=== PATIENT | female | born 1985 | race Caucasian/White ===

== ENCOUNTER → 2017-03-01 | Outpatient (CLI) | payer OTHER ==
--- NOTE | 2017-03-01 23:23 | MR ---
EXAMINATION TYPE: MR pituitary wo/w con DATE OF EXAM: 03/01/2017 COMPARISON: NONE HISTORY: Benign Neoplasm Pineal Gland TECHNIQUE: Multiplanar, multisequence images of the brain and brainstem is performed without and with IV contras t, utilizing 19 mL intravenous MultiHance . FINDINGS: Pituitary stalk is in the midline. Pituitary gland has normal size. There is uniform normal enhanceme nt of the pituitary gland. Optic chiasm appears normal. Corpus callosum appears normal. There is normal concave superior surface of the pituitary gland. There is a 5 mm rounded area of flui d signal at the pineal gland consistent with a small pineal cyst. I see no pathologic enhancement. IMPRESSION: No evidence of a pituitary mass. Small pineal cyst.
== END | disposition home or self-care (01) ==
LOC: RADMRIMAIN 17:39
PROVIDERS: ATTEND Nurse Practitioner Family
DX: D35.4 Benign neoplasm of pineal gland (principal)
CPT/HCPCS: 70553; A9577

== ENCOUNTER → 2023-02-07 | Outpatient (CLI) | payer BC ==
--- NOTE | 2023-02-07 17:37 | P.HPBAR ---
Bariatric H&P - History & Physicial H&P Date: 02/07/23 History & Physicial: Visit/CC: Patient initial contact: Initial weight: Initial weight in pounds: Height: Initial BMI: Last weight: Current weight: Current weight in pounds: Current BMI: [place] body weight (based on NIH guidelines): Excess body weight loss: The patient is a 37 year-old F who presents for Bariatric Assessment. DATE OF SERVICE: 02/07/2023 REASON FOR CONSULTATION: Initial bariatric evaluation. HISTORY OF PRESENT ILLNESS: Cheyanne Lui is a 37-year-old female who comes with lifelong morbid obesity. She comes in looking into the sleeve gastrectomy. She has family history of morbid obesity. All of her sisters has weight issues. She presents at her highest. She tried Aadipex and had injections for weight loss. She did shakeolgy for weight loss. She is smoking. She has high blood pressure. She has sleep apnea. She has family history of deep venous thrombosis. Her mother had DVTs. She denies Crohn's disease or ulcerateive colitis. She is getting a hemorrhoidectomy at the end of the month. She had a colonoscopy for blood in stools. She denies stomach or esophageal cancer in her family. He father had liver cancer. She reports knee pain and lower back pain. She has torn meniscus. She lost 35 pounds and regained on her own 4 years ago. She is looking the sleeve. She reports heartburn. She presents for the first time for evaluation of surgical weight loss. At height of 5 feet 3 inches, her ideal body weight is 140 pounds. She comes in 225 pounds. Her body mass index is 39.9. She is 85 pounds overweight. PAST MEDICAL HISTORY: 1. Morbid obesity due to excess calories 2. Body mass index of 39.9, initial 3. Osteoarthritis of the knees. 4. Osteoarthritis of the lower back. 5. Hypertensive heart disease. 6. Gastroesophageal reflux disease 7. GI bleed 8. Obstructive sleep apnea PAST SURGICAL HISTORY: 1. No abdominal surgeries HOME MEDICATIONS: Home Medications Medication Instructions Recorded Confirmed No Known Home Medications 04/23/14 05/01/14 ALLERGIES: Allergies Allergy/AdvReac Type Severity Reaction Status Date / Time No Known Allergies Allergy Verified 04/23/14 15:22 SOCIAL HISTORY: Tobacco use. FAMILY HISTORY: No family history of ulcerative colitis disease or Crohn's disease. Family history of morbid obesity. No lupus in the family. No reports of stomach or esophageal cancer. Her mother had DVTs. Dad had liver cancer. REVIEW OF ORGAN SYSTEMS: CONSTITUTIONAL: At height of 5 feet 3 inches, her ideal body weight is 140 pounds. She comes in 225 pounds. Her body mass index is 39.9. She is 85 pounds overweight. HEENT: Denies any active troubles with vision or hearing. Denies troubles with swallowing. ENDOCRINE: Denies diabetes. No hypothyroidism. CARDIOVASCULAR: Denies past reports of palpitations or heart attacks or chest pain. Has hypertensive heart disease. RESPIRATORY: Has daytime somnolence. Has asthma. Has chronic obstructive pulmonary disease. Has tobacco use. GASTROINTESTINAL: Denies any bright red blood per rectum. No diarrhea. No constipation. Has gastroesophageal reflux disease. GENITOURINARY: No recent blood in urine MUSCULOSKELETAL: Has lower back pain and joint pain. Has osteoarthritis of the knees. NEURO: No headaches. No seizure disorders. PSYCH: Denies depression. No suicidal ideation. RHEUMATOLOGIC: No lupus. No rheumatoid arthritis. HEMATOLOGIC: Denies any abnormal bleeding or bruising. Past history of DVTs in mother. SKIN: No rash. No skin cancer. PHYSICAL EXAM: VITAL SIGNS: Height 5 foot 3 inches, weight 225 pounds. BMI 39.9 Vital Signs Temp 97 F L 02/07/23 16:35 Pulse 75 02/07/23 16:35 Resp BP 129/83 02/07/23 16:35 Pulse Ox FiO2 GENERAL: Well-developed in no acute distress. HEENT: No scleral icterus. Extraocular movements grossly intact. Hears conversational speech. No nasal drainage. NECK: Supple without lymphadenopathy. CHEST: Nonlabored respirations with equal bilateral excursions. CARDIOVASCULAR: Regular rate and regular rhythm. Distal 2+ pulses. ABDOMEN: Obese, soft, nontender, nondistended. MUSCULOSKELETAL: No clubbing, cyanosis. Gross strength 5/5 distal lower extremities. NEURO: No focal or lateralizing signs. Cranial nerves 2 through 12 grossly within normal limits. PSYCH: Appropriate affect. Alert and oriented to person, place and time. SKIN: Good skin turgor. Well perfused. ASSESSMENT: 1. Morbid obesity due to excess calories 2. Body mass index of 39.9, initial 3. Osteoarthritis of the knees. 4. Osteoarthritis of the lower back. 5. Hypertensive heart disease. 6. Gastroesophageal reflux disease 7. GI bleed 8. Obstructive sleep apnea 9. Tobacco abuse PLAN: 1. Surgical options including a band, gastric bypass, sleeve gastrectomy were described in detail. Alternatives such as gastric balloon including duodenal switch were described. She is looking into the sleeve. 2. Strict tobacco cessation advised. 3. Recommend a bariatric metabolic panel to evaluate for micro- including macronutrient deficiencies. 4. For history of daytime somnolence, recommend evaluation and treatment for sleep apnea. 5. Dietary surveillance and counseling was reviewed. Increased protein intake over 65 grams daily advised. 6. Will need cardiac risk assessment. 7. Recommend medical risk assessment. 8. Psych assessment per insurance guidelines. 9. Recommend upper endoscopy. 10. Recommend 12-lead EKG. Thank you for this consultation. Past Medical History Past Medical History: No Reported History History of Any Multi-Drug Resistant Organisms: None Reported Past Surgical History: No Surgical Hx Reported Past Anesthesia/Blood Transfusion Reactions: No Reported Reaction Past Psychological History: No Psychological Hx Reported Past Alcohol Use History: None Reported Past Drug Use History: None Reported Bariatric Checklist Checklist: Plan: Checklist: EGD: 1. Hiatal hernia: 2. H. Pylori: HgbA1c: Vitamin D: Smoking: Current some day smoker Primary care physician referral: Psychiatry clearance: Cardiology clearance: Sleep study: Diet journal: VTE risk score: VTE risk level: Rehab needs at discharge:
[2023-02-08 08:15] VITALS: BP 129/83; PULSE 75; TEMP 97; BMI 39.8
== END ==
LOC: BARWHC3 16:35
PROVIDERS: ATTEND Surgery Plastic and Reconstructive Surgery
DX: E66.01 Morbid (severe) obesity due to excess calories (principal); M17.9 Osteoarthritis of knee, unspecified; I11.9 Hypertensive heart disease without heart failure; M47.816 Spondylosis without myelopathy or radiculopathy, lumbar region; K21.9 Gastro-esophageal reflux disease without esophagitis; G47.33 Obstructive sleep apnea (adult) (pediatric); F17.200 Nicotine dependence, unspecified, uncomplicated; K92.2 Gastrointestinal hemorrhage, unspecified; Z68.39 Body mass index [BMI] 39.0-39.9, adult
CPT/HCPCS: 99211

== ENCOUNTER → 2023-02-17 | Outpatient (CLI) | payer BC ==
[2023-02-17 12:10] LABS: INR 0.9 (<1.2); Partial Thromboplastin Time 25.9 sec (22.0-30.0)
[2023-02-17 23:03] LABS: HCT 43.3 % (37.2-46.3); HGB 13.1 d/dL (12.0-15.0); MCH 29.6 pg (27.0-32.0); MCHC 30.3 d/dL (32.0-37.0); Mean Platelet Volume 11.6 FL (9.5-12.2); NRBC Per 100 WBC 0 X 10*3/uL (0.00-0.01); Platelet Count 366 X 10*3/uL (140-440); RBC 4.42 X 10*6/uL (4.10-5.20); RDW 13.6 % (11.5-14.5); WBC 7.69 X 10*3/uL (4.50-10.00)
[2023-02-17 23:12] LABS: Prealbumin 23.1 mg/dL (18.0-42.0)
[2023-02-17 23:34] LABS: % Iron Saturation 21.09 (12.00-45.00); ALT 39 U/L (8-44); AST 27 U/L (13-35); Albumin 4.4 d/dL (3.8-4.9); Albumin/Globulin Ratio 1.76 Ratio (1.60-3.17); Alkaline Phosphatase 54 U/L (41-126); BUN/Creat Ratio 11.25 Ratio (12.00-20.00); Calcium 9.2 mg/dL (8.7-10.3); Carbon Dioxide 21.4 mmol/L (21.6-31.8); Chloride 106 mmol/L (96-109); Chol/HDL Ratio 4.55 Ratio; Ferritin 25.3 ng/mL (10.0-291.0); Globulin 2.5 d/dL (1.6-3.3); Glucose 94 mg/dL (70-110); Iron 93 UG/DL (50-170); LDL Cholesterol,Calculated 107.8 mg/dL (0.0-131.0); Magnesium 2.1 mg/dL (1.5-2.4); Potassium 4.4 mmol/L (3.5-5.5); Sodium 139 mmol/L (135-145); Total Bilirubin 0.3 mg/dL (0.3-1.2); Total Iron Binding Capacity 441 UG/DL (228-460); Total Protein 6.9 d/dL (6.2-8.2)
[2023-02-19 12:37] LABS: Zinc, Serum 59 ug/dL (60-130)
[2023-02-20 06:29] LABS: Vitamin A 47 ug/dL (38-106)
[2023-02-20 13:21] LABS: Vit B1(Thiamine) 79 ug/L (38-122)
[2023-02-25 08:08] LABS: Selenium 124 mcg/L (63-160)
== END | disposition home or self-care (01) ==
LOC: LABWHC1 09:41
PROVIDERS: ATTEND Surgery Plastic and Reconstructive Surgery
DX: E66.01 Morbid (severe) obesity due to excess calories (principal); Z71.51 Drug abuse counseling and surveillance of drug abuser; E89.1 Postprocedural hypoinsulinemia; D50.8 Other iron deficiency anemias; K91.2 Postsurgical malabsorption, not elsewhere classified; E44.0 Moderate protein-calorie malnutrition; E44.1 Mild protein-calorie malnutrition; E45 Retarded development following protein-calorie malnutrition; E46 Unspecified protein-calorie malnutrition; E55.9 Vitamin D deficiency, unspecified; K74.1 Hepatic sclerosis; N19 Unspecified kidney failure; T56.894A Toxic effect of other metals, undetermined, initial encounter; K50.90 Crohn's disease, unspecified, without complications
CPT/HCPCS: 36415; 80053; 80061; 82306; 82525; 82607; 82728; 82746; 83036; 83540; 83550; 83735; 83970; 84100; 84134; 84255; 84425; 84443; 84590; 84630; 85027; 85610; 85730; 93005

== ENCOUNTER 2023-04-23 07:04 | Day surgery (SDC) | payer BC ==
[2023-04-20 09:00] VITALS: BMI 41.5
--- NOTE | 2023-04-23 07:37 | P.GSHP ---
History of Present Illness H&P Date: 04/23/23 CHIEF COMPLAINT: GERD HISTORY OF PRESENT ILLNESS: The patient is a 37-year-old female who presents reports gastroesophageal reflux disease. Upper endoscopy was offered for further evaluation and management. PAST MEDICAL HISTORY: Please see list. PAST SURGICAL HISTORY: Please see list. MEDICATIONS: Please see list. ALLERGIES: Please see list. SOCIAL HISTORY: No illicit drug use FAMILY HISTORY: No reports of Crohn disease or ulcerative colitis. REVIEW OF ORGAN SYSTEMS: CONSTITUTIONAL: No reports of fevers or chills. GI: Denies any blood in stools or constipation. PHYSICAL EXAM: VITAL SIGNS: Stable GENERAL: Well-developed and pleasant in no acute distress. HEENT: No scleral icterus. Extraocular movements grossly intact. Moist buccal mucosa. NECK: Supple without lymphadenopathy. CHEST: Unlabored respirations. Equal bilateral excursions. CARDIOVASCULAR: Regular rate and rhythm. Distal 2+ pulses. ABDOMEN: Soft, nondistended. MUSCULOSKELETAL: No clubbing, cyanosis, or edema. ASSESSMENT: 1. Gastroesophageal reflux disease PLAN: 1. Recommend proceeding with an upper endoscopy Past Medical History Past Medical History: No Reported History History of Any Multi-Drug Resistant Organisms: None Reported Past Surgical History: Orthopedic Surgery, Tonsillectomy Additional Past Surgical History / Comment(s): hemorrhoidectomy february 23,arthroscopic knee right 2019 Past Anesthesia/Blood Transfusion Reactions: No Reported Reaction Additional Past Anesthesia/Blood Transfusion Reaction / Comment(s): no blood transfusion Smoking Status: Former smoker - Past Family History Father Family Medical History: Cancer Additional Family Medical History / Comment(s): liver Medications and Allergies Home Medications Medication Instructions Recorded Confirmed Type No Known Home Medications 04/23/14 04/20/23 History Allergies Allergy/AdvReac Type Severity Reaction Status Date / Time No Known Allergies Allergy Verified 04/23/14 15:22
[2023-04-23 07:38] VITALS: TEMP 97.5
[2023-04-23] MEDS ORDERED: LACTATED RINGERS 1,000 ML IV SCH (07:39)
[2023-04-23] MEDS ORDERED: PROPOFOL 10 MG/ML 20 ML VIAL IV ONE (07:54)
[2023-04-23] MEDS ORDERED: LIDOCAINE 2% INJ 20 MG/ML (2 ML VIAL) ONE (07:54)
--- NOTE | 2023-04-23 08:07 | P.PCN ---
Date of Procedure: 04/23/23 Description of Procedure: PREOPERATIVE DIAGNOSIS: Gastroesophageal reflux disease. Morbid obesity. POSTOPERATIVE DIAGNOSIS: Gastroesophageal reflux disease. Morbid obesity. Gastritis. OPERATION: Esophagogastroduodenoscopy with biopsies along antrum and duodenum SURGEON: Vickie Lin MD ANESTHESIA: MAC. INDICATIONS: The patient is a 37-year-old female who presents with reflux disease. Benefits and risks of the procedure were described. Informed consent was obtained. DESCRIPTION: The patient was brought into the endoscopy suite and laid in the left lateral decubitus position. An Olympus gastroscope was passed along the posterior oropharynx down to the distal esophagus where the squamocolumnar junction was encountered at 38 cm from the incisors. The stomach was entered and no bile reflux was found. Additional findings are listed below. Biopsies with cold forceps were obtained of the antrum. The first through third portion of the duodenum was examined. Retroflexion of the scope confirmed Hill grade 2 lower esophageal valve. The squamocolumnar junction demonstrated LA grade A erosive esophagitis. The stomach was desufflated. The patient tolerated the procedure well. FINDINGS: Squamocolumnar junction 38 cm from the incisors. Diaphragmatic hiatus at 38 cm. Hill grade 1 lower esophageal valve. LA grade A erosive esophagitis. Biopsies obtained of the duodenum. Chronic gastritis with biopsies obtained. RECOMMENDATIONS: Upper endoscopy as needed. Plan - Discharge Summary Discharge Rx Participant: No New Discharge Prescriptions: No Action No Known Home Medications Discharge Medication List No Known Home Medications 04/23/14 [History] Follow up Appointment(s)/Referral(s): [place], [place] [NON-STAFF] - 06/06/23 Discharge Disposition: HOME SELF-CARE
[2023-04-23 08:28] VITALS: BP 130/87; PULSE 77; RESP 16
== END 2023-04-23 08:47 | disposition home or self-care (01) ==
LOC: ORWHC2ENDO 07:04
PROVIDERS: ATTEND Surgery Plastic and Reconstructive Surgery
DX: K29.50 Unspecified chronic gastritis without bleeding (principal); K21.00 Gastro-esophageal reflux disease with esophagitis, without bleeding; E66.01 Morbid (severe) obesity due to excess calories; K44.9 Diaphragmatic hernia without obstruction or gangrene; Z87.891 Personal history of nicotine dependence; Z79.899 Other long term (current) drug therapy; Z68.45 Body mass index [BMI] 70 or greater, adult
CPT/HCPCS: 81025; 88305; 43239; J2704; J2001

== ENCOUNTER → 2023-06-06 | Outpatient (CLI) | payer BC ==
[2023-06-06 16:35] VITALS: BP 143/96; PULSE 99; RESP 13; TEMP 97.9; BMI 42.0
--- NOTE | 2023-06-06 16:55 | P.BASOAP ---
Subjective Progress Note Date: 06/06/23 DATE OF SERVICE: 06/06/2023 CHIEF COMPLAINT: Morbid obesity HISTORY OF PRESENT ILLNESS: Cheyanne Lui is a 38-year-old female who comes with lifelong morbid obesity. As result of morbid obesity, she has several osteoarthritis. She is recently diagnosed with diabetes type 2. She is looking into the sleeve gastrectomy. She is undergoing medical supervised weight loss. At height of 5 feet 3 inches, her ideal body weight is 140 pounds. She comes in 237 pounds. Her body mass index is 42.0. She is 97 pounds overweight. PAST MEDICAL HISTORY: 1. Morbid obesity due to excess calories 2. Body mass index of 42.0 3. Osteoarthritis of the knees. 4. Osteoarthritis of the lower back. 5. Diabetes type 2, [id number] PAST SURGICAL HISTORY: 1. Tonsillectomy 2. Arthroscopy HOME MEDICATIONS: Home Medications Medication Instructions Recorded Confirmed No Known Home Medications 04/23/14 06/06/23 ALLERGIES: Allergies Allergy/AdvReac Type Severity Reaction Status Date / Time No Known Allergies Allergy Verified 06/06/23 16:28 SOCIAL HISTORY: Past tobacco use. FAMILY HISTORY: No family history of ulcerative colitis disease or Crohn's disease. Family history of morbid obesity. No lupus in the family. No reports of stomach or esophageal cancer. REVIEW OF ORGAN SYSTEMS: CONSTITUTIONAL: At height of 5 feet 3 inches, her ideal body weight is 140 pounds. She comes in 237 pounds. Her body mass index is 42.0. She is 97 pounds overweight. HEENT: Denies any active troubles with vision or hearing. ENDOCRINE: Has diabetes. No hypothyroidism. CARDIOVASCULAR: No reports of palpitations or heart attacks or chest pain. RESPIRATORY: Has daytime somnolence. GASTROINTESTINAL: Denies any bright red blood per rectum. Has gastroesophageal reflux disease. MUSCULOSKELETAL: Has lower back pain and joint pain. Has osteoarthritis of the knees. NEURO: No headaches. No seizure disorders. PSYCH: Has depression. No suicidal ideation. RHEUMATOLOGIC: No lupus. No rheumatoid arthritis. HEMATOLOGIC: Denies any abnormal bleeding or bruising. No personal history of DVTs. SKIN: Has rash. No skin cancer. PHYSICAL EXAM: VITAL SIGNS: Height 5 foot 3 inches, weight 237 pounds. BMI 42.0 Vital Signs Temp 97.9 F 06/06/23 16:27 Pulse 99 06/06/23 16:27 Resp 13 06/06/23 16:27 BP 143/96 06/06/23 16:27 Pulse Ox FiO2 GENERAL: Well-developed in no acute distress. HEENT: No scleral icterus. Extraocular movements grossly intact. Hears conversational speech. No nasal drainage. NECK: Supple without lymphadenopathy. CHEST: Nonlabored respirations with equal bilateral excursions. CARDIOVASCULAR: Regular rate and regular rhythm. Distal 2+ pulses. ABDOMEN: Obese, soft, nontender, nondistended. MUSCULOSKELETAL: No clubbing, cyanosis. NEURO: No focal or lateralizing signs. Cranial nerves 2 through 12 grossly within normal limits. PSYCH: Appropriate affect. Alert and oriented to person, place and time. SKIN: Good skin turgor. Well perfused. LABS: Reviewed. Hemoglobin A1c elevated at 6.1%. Vitamin D low. Zinc low ASSESSMENT: 1. Morbid obesity due to excess calories 2. Body mass index of 42.0 3. Osteoarthritis of the knees. 4. Osteoarthritis of the lower back. 5. Diabetes type 2, [id number] 6. Zinc deficiency 7. Vitamin D deficiency PLAN: 1. She lost her primary care provider and needs a new provider. 2. EKG is missing from records and not scanned. Recommend additional EKG. 3. Recommend medical supervised weight loss Objective - Vital Signs Vital signs: Vital Signs Temp 97.9 F 06/06/23 16:27 Pulse 99 06/06/23 16:27 Resp 13 06/06/23 16:27 BP 143/96 06/06/23 16:27 Pulse Ox FiO2 Intake & Output 06/05/23 06/06/23 06/06/23 18:59 06:59 18:59 Weight 107.501 kg Assessment/Plan Plan: Date: 06/06/23 Initial Weight: Initial BMI: Current Weight: 107.501 kg Current BMI: 42.0 Type of Surgery: Total Volume in Band: Previous Volume: Volume Removed: Volume Added: Band Size:
== END ==
LOC: BARWHC3 16:25
PROVIDERS: ATTEND Surgery Plastic and Reconstructive Surgery
DX: E66.01 Morbid (severe) obesity due to excess calories (principal); M17.0 Bilateral primary osteoarthritis of knee; M47.816 Spondylosis without myelopathy or radiculopathy, lumbar region; E11.9 Type 2 diabetes mellitus without complications; E60 Dietary zinc deficiency; F17.200 Nicotine dependence, unspecified, uncomplicated; E55.9 Vitamin D deficiency, unspecified; Z68.41 Body mass index [BMI] 40.0-44.9, adult
CPT/HCPCS: 99211

== ENCOUNTER → 2023-06-25 | Outpatient (CLI) | payer BC ==
[2023-06-25 13:38] VITALS: BMI 41.3
== END ==
LOC: BARWHC3 12:57
PROVIDERS: ATTEND Surgery Plastic and Reconstructive Surgery
DX: E66.01 Morbid (severe) obesity due to excess calories (principal); F17.200 Nicotine dependence, unspecified, uncomplicated; Z68.41 Body mass index [BMI] 40.0-44.9, adult; Z71.3 Dietary counseling and surveillance
CPT/HCPCS: 97804; 99211

== ENCOUNTER → 2023-08-15 | Outpatient (CLI) | payer BC ==
[2023-08-15 16:55] VITALS: BP 132/77; TEMP 98; BMI 41.8
[2023-08-15 17:19] VITALS: PULSE 86
--- NOTE | 2023-09-03 07:39 | P.BASOAP ---
Subjective Progress Note Date: 08/15/23 DATE OF SERVICE:08/15/23 CHIEF COMPLAINT: Morbid obesity due to excess calories HISTORY OF PRESENT ILLNESS: Cheyanne Lui is a 38-year-old female who comes with lifelong morbid obesity. She comes in looking into the sleeve gastrectomy. She has completed medical supervised weight loss. She comes in with troubles with constipation. She has completed medical risk assessment. At height of 5 feet 3 inches, her ideal body weight is 140 pounds. She comes in 236 pounds from 237 pounds 2 months ago. She has lost 1 pounds in 2 months. Her body mass index is 41.8. She is 96 pounds overweight. PAST MEDICAL HISTORY: 1. Morbid obesity due to excess calories 2. Body mass index due to excess calories, BMI 41.8 3. Diabetes type 2, [id number] 4. Osteoarthritis lower back 5. Osteoarthritis bilateral knees 6. Osteoarthritis bilateral hips PAST SURGICAL HISTORY: 1. Status post hemorrhoidectomy HOME MEDICATIONS: Home Medications Medication Instructions Recorded Confirmed Acetaminophen [Tylenol Extra 1,000 mg PO DIRECTED PRN 08/28/23 09/05/23 Strength] Previous Rx's Medication Instructions Recorded Ibuprofen [Motrin] 600 mg PO Q8HR PRN #30 tab 09/03/23 ALLERGIES: Allergies Allergy/AdvReac Type Severity Reaction Status Date / Time No Known Allergies Allergy Verified 09/03/23 07:12 SOCIAL HISTORY: Past tobacco use. FAMILY HISTORY: No family history of ulcerative colitis disease or Crohn's disease. Family history of morbid obesity. No lupus in the family. No reports of stomach or esophageal cancer. REVIEW OF ORGAN SYSTEMS: CONSTITUTIONAL: At height of 5 feet 3 inches, her ideal body weight is 140 pounds. She comes in 236 pounds. Her body mass index is 41.8. She is 96 pounds overweight. HEENT: Denies any active troubles with vision or hearing. ENDOCRINE: Has diabetes. No hypothyroidism. CARDIOVASCULAR: Denies past reports of palpitations or heart attacks or chest pain. Denies hypertensive heart disease. RESPIRATORY: Has daytime somnolence. Has asthma. Has chronic obstructive pulmonary disease. GASTROINTESTINAL: Denies any bright red blood per rectum. No diarrhea. No constipation. Has gastroesophageal reflux disease. GENITOURINARY: Denies bladder urgency. No recent blood in urine MUSCULOSKELETAL: Has lower back pain and joint pain. Has osteoarthritis of the knees. NEURO: No headaches. No seizure disorders. Has neuropathy. PSYCH: Has depression. No suicidal ideation. RHEUMATOLOGIC: No lupus. No rheumatoid arthritis. HEMATOLOGIC: Denies any abnormal bleeding or bruising. SKIN: No rash. No skin cancer. PHYSICAL EXAM: VITAL SIGNS: Height 5 foot 3 inches, weight 236 pounds. BMI 41.8 Vital Signs Temp 98 F 08/15/23 16:40 Pulse 86 08/15/23 16:40 Resp BP 132/77 08/15/23 16:40 Pulse Ox FiO2 GENERAL: Well-developed in no acute distress. HEENT: No scleral icterus. Extraocular movements grossly intact. Hears conversational speech. No nasal drainage. NECK: Supple without lymphadenopathy. CHEST: Nonlabored respirations with equal bilateral excursions. CARDIOVASCULAR: Regular rate and regular rhythm. Distal 2+ pulses. ABDOMEN: Obese, soft, nontender, nondistended. MUSCULOSKELETAL: No clubbing, cyanosis. NEURO: No focal or lateralizing signs. Cranial nerves 2 through 12 grossly within normal limits. PSYCH: Appropriate affect. Alert and oriented to person, place and time. SKIN: Good skin turgor. Well perfused. ASSESSMENT: 1. Morbid obesity due to excess calories 2. Body mass index due to excess calories, BMI 41.8 3. Diabetes type 2, [id number] 4. Osteoarthritis lower back 5. Osteoarthritis bilateral knees 6. Osteoarthritis bilateral hips PLAN: 1. Bariatric options between a sleeve, band and a [place]-en-Y gastric bypass were reviewed in detail. The patient elected for a sleeve gastrectomy. Robotic assisted approach described. 2. The [place] [facility] Data was completed. 3. An 8 page second-generation bariatric consent form was reviewed in detail including potential of bleeding, infection, leaks, adequate weight loss, nutritional deficiencies which the patient demonstrated understanding of the risks. 4. A 2 week high-protein low caloric 800 kcal diet described to address hepatomegaly. 5. Preoperative labs including complete metabolic panel and CBC with type and screen recommended. 6. DVT prophylaxis per [place] [facility]. 7. Antibiotic prophylaxis. 8. Inpatient hospitalization anticipated for more than 2 nights. 9. All questions and concerns were addressed with the patient. 10. Overall, patient has expressed understanding of bariatric care including postoperative diet and commitment of lifestyle. Patient should benefit from surgical intervention for correction of morbid obesity. 11. Strict 2 week diet advised including hydration over 64 ounces daily and increased activity Objective - Vital Signs Vital signs: Vital Signs Temp 98 F 08/15/23 16:40 Pulse 86 08/15/23 16:40 Resp BP 132/77 08/15/23 16:40 Pulse Ox FiO2 Assessment/Plan Plan: Date: 08/15/23 Initial Weight: Initial BMI: Current Weight: 107.048 kg Current BMI: 41.8 Type of Surgery: Total Volume in Band: Previous Volume: Volume Removed: Volume Added: Band Size:
== END ==
LOC: BARWHC3 16:36
PROVIDERS: ATTEND Surgery Plastic and Reconstructive Surgery
DX: E66.01 Morbid (severe) obesity due to excess calories (principal); E11.9 Type 2 diabetes mellitus without complications; M47.816 Spondylosis without myelopathy or radiculopathy, lumbar region; M17.0 Bilateral primary osteoarthritis of knee; M16.0 Bilateral primary osteoarthritis of hip; F17.200 Nicotine dependence, unspecified, uncomplicated; Z68.41 Body mass index [BMI] 40.0-44.9, adult
CPT/HCPCS: 99211

== ENCOUNTER → 2023-08-28 | Outpatient (CLI) | payer BC ==
[2023-08-28 20:06] LABS: Basophils # (A) 0.04 X 10*3/uL (0.00-0.10); Basophils % (A) 0.4 %; Eosinophils # (A) 0.26 X 10*3/uL (0.04-0.35); Eosinophils % (A) 2.5 %; HCT 42.6 % (37.2-46.3); Lymphocytes # (A) 2.74 X 10*3/uL (0.90-5.00); Lymphocytes % (A) 26.7 %; MCH 30.8 pg (27.0-32.0); MCHC 32.9 g/dL (32.0-37.0); MCV 93.6 FL (80.0-97.0); Mean Platelet Volume 10.2 FL (9.5-12.2); Monocytes # (A) 0.64 X 10*3/uL (0.20-1.00); Monocytes % (A) 6.2 %; NRBC Per 100 WBC 0 X 10*3/uL (0.00-0.01); Neutrophils # (A) 6.58 X 10*3/uL (1.80-7.70); Platelet Count 342 X 10*3/uL (140-440); RBC 4.55 X 10*6/uL (4.10-5.20); RDW 12.3 % (11.5-14.5); WBC 10.28 X 10*3/uL (4.50-10.00)
[2023-08-28 20:31] LABS: ALT 76 U/L (8-44); AST 50 U/L (13-35); Albumin 4.7 g/dL (3.8-4.9); Albumin/Globulin Ratio 1.96 Ratio (1.60-3.17); Alkaline Phosphatase 49 U/L (41-126); BUN/Creat Ratio 17.75 Ratio (12.00-20.00); Blood Urea Nitrogen 14.2 mg/dL (9.0-27.0); Calcium 9.9 mg/dL (8.7-10.3); Carbon Dioxide 24.7 mmol/L (21.6-31.8); Chloride 102 mmol/L (96-109); Globulin 2.4 g/dL (1.6-3.3); Glucose 87 mg/dL (70-110); Potassium 3.9 mmol/L (3.5-5.5); Sodium 139 mmol/L (135-145); Total Bilirubin 0.5 mg/dL (0.3-1.2); Total Protein 7.1 g/dL (6.2-8.2)
== END | disposition home or self-care (01) ==
LOC: LABWHC1 16:00
PROVIDERS: ATTEND Surgery Plastic and Reconstructive Surgery
DX: Z01.812 Encounter for preprocedural laboratory examination (principal)
CPT/HCPCS: 36415; 80053; 85025; 86850; 86900; 86901

== ENCOUNTER 2023-09-03 06:58 | Inpatient (IN) | payer BC ==
[2023-08-28 14:25] VITALS: BMI 41.1
[~2023-09-03 06:58] MED LIST: ACETAMINOPHEN TAB 500 MG TAB PO PRN; ALVIMOPAN 12 MG CAPSULE PO PRN; DEXAMETHASONE SOD PHOSPHATE 4 MG/ML 1 ML VIAL IV ONE; ENOXAPARIN 40 MG/0.4 ML SYRINGE SQ PRN; HYDROmorphone 0.5 MG/0.5 ML SYRINGE IVP PRN; LACTATED RINGERS 1,000 ML IV SCH; LIDOCAINE 1% (10MG/ML) FOR IV START INTRADERMA PRN; ONDANSETRON 4 MG/2 ML VIAL IVP ONE; ONDANSETRON 4 MG/2 ML VIAL IVP PRN; SCOPOLAMINE 1 MG/72 HR PATCH TRANSDERM ONE; droPERidol 5 MG/2 ML VIAL IVP PRN
[2023-09-03 07:29] VITALS: RESP 16
[2023-09-03 07:30] LABS: Glucose,Whole Blood 109 mg/dL (70-110)
[2023-09-03] MEDS ORDERED: ONDANSETRON 4 MG/2 ML VIAL IVP ONE (07:38)
[2023-09-03] MEDS ORDERED: DEXAMETHASONE SOD PHOSPHATE 4 MG/ML 1 ML VIAL IVP ONE (07:38)
[2023-09-03] MEDS ORDERED: ALVIMOPAN 12 MG CAPSULE PO ONE (07:38)
[2023-09-03] MEDS ORDERED: SCOPOLAMINE 1 MG/72 HR PATCH TRANSDERM ONE (07:39)
--- NOTE | 2023-09-03 07:48 | P.GSHP ---
History of Present Illness H&P Date: 09/03/23 CHIEF COMPLAINT: Morbid obesity HISTORY OF PRESENT ILLNESS: Cheyanne Lui is a 38-year-old female who comes with lifelong morbid obesity. She comes in looking into the sleeve gastrectomy. She has family history of morbid obesity. All of her sisters has weight issues. She presents at her highest. She tried Aadipex and had injections for weight loss. She did shakeolgy for weight loss. She is smoking. She has high blood pressure. She has sleep apnea. She has family history of deep venous thrombosis. Her mother had DVTs. She denies Crohn's disease or ulcerateive colitis. She is getting a hemorrhoidectomy at the end of the month. She had a colonoscopy for blood in stools. She denies stomach or esophageal cancer in her family. He father had liver cancer. She reports knee pain and lower back pain. She has torn meniscus. She lost 35 pounds and regained on her own 4 years ago. She is looking the sleeve. She reports heartburn. At height of 5 feet 2 inches, her ideal body weight is 135 pounds. She comes in 227 pounds from 225 pounds, 6 months ago. Her body mass index is 41.6. She is 92 pounds overweight. PAST MEDICAL HISTORY: 1. Morbid obesity due to excess calories 2. Body mass index of 41.6 3. Osteoarthritis of the knees. 4. Osteoarthritis of the lower back. 5. Hypertensive heart disease. 6. Gastroesophageal reflux disease 7. GI bleed 8. Obstructive sleep apnea PAST SURGICAL HISTORY: 1. No abdominal surgeries HOME MEDICATIONS: As above ALLERGIES: As above SOCIAL HISTORY: Tobacco use. FAMILY HISTORY: No family history of ulcerative colitis disease or Crohn's disease. Family history of morbid obesity. No lupus in the family. No reports of stomach or esophageal cancer. Her mother had DVTs. Dad had liver cancer. REVIEW OF ORGAN SYSTEMS: CONSTITUTIONAL: At height of 5 feet 2 inches, her ideal body weight is 135 pounds. She comes in 227 pounds from 225 pounds, 6 months ago. Her body mass index is 41.6. She is 92 pounds overweight. HEENT: Denies any active troubles with vision or hearing. Denies troubles with swallowing. ENDOCRINE: Denies diabetes. No hypothyroidism. CARDIOVASCULAR: Denies past reports of palpitations or heart attacks or chest pain. Has hypertensive heart disease. RESPIRATORY: Has daytime somnolence. Has asthma. Has chronic obstructive pulmonary disease. Has tobacco use. GASTROINTESTINAL: Denies any bright red blood per rectum. No diarrhea. No constipation. Has gastroesophageal reflux disease. GENITOURINARY: No recent blood in urine MUSCULOSKELETAL: Has lower back pain and joint pain. Has osteoarthritis of the knees. NEURO: No headaches. No seizure disorders. PSYCH: Denies depression. No suicidal ideation. RHEUMATOLOGIC: No lupus. No rheumatoid arthritis. HEMATOLOGIC: Denies any abnormal bleeding or bruising. Past history of DVTs in mother. SKIN: No rash. No skin cancer. PHYSICAL EXAM: VITAL SIGNS: Height 5 foot 2 inches, weight 227 pounds. GENERAL: Well-developed in no acute distress. HEENT: No scleral icterus. Extraocular movements grossly intact. Hears conversational speech. No nasal drainage. NECK: Supple without lymphadenopathy. CHEST: Nonlabored respirations with equal bilateral excursions. CARDIOVASCULAR: Regular rate and regular rhythm. Distal 2+ pulses. ABDOMEN: Obese, soft, nontender, nondistended. MUSCULOSKELETAL: No clubbing, cyanosis. NEURO: No focal or lateralizing signs. Cranial nerves 2 through 12 grossly within normal limits. PSYCH: Appropriate affect. Alert and oriented to person, place and time. SKIN: Good skin turgor. Well perfused. ASSESSMENT: 1. Morbid obesity due to excess calories 2. Body mass index of 41.6 3. Osteoarthritis of the knees. 4. Osteoarthritis of the lower back. 5. Hypertensive heart disease. 6. Gastroesophageal reflux disease 7. GI bleed 8. Obstructive sleep apnea 9. Tobacco abuse 10. Leukocytosis PLAN: 1. Bariatric options between a sleeve, band and a Emani-en-Y gastric bypass were reviewed in detail. The patient elected for a sleeve gastrectomy. Robotic assisted approach described. 2. The [place] [facility] Data was also reviewed with benefits and risks as described. 3. An 8 page second-generation bariatric consent form was reviewed in detail including potential of bleeding, infection, leaks, adequate weight loss, nutritional deficiencies which the patient demonstrated understanding of the risks. 4. A 2 week high-protein low caloric 800 kcal diet described to address hepato megaly. 5. Preoperative labs including complete metabolic panel and CBC with type and screen recommended. 6. DVT prophylaxis per [place] [facility]ariat[facility] collaborative. 7. Antibiotic prophylaxis. 8. Inpatient hospitalization anticipated for more than 2 nights. 9. All questions and concerns were addressed with the patient. 10. The patient is at elevated risk for perioperative complications with sleep apnea and hypertensive heart disease. 11. Overall, patient has expressed understanding of bariatric care including postoperative diet and commitment of lifestyle. Patient should benefit from surgical intervention for correction of morbid obesity. 12. She is elevated risk due to pre-existing comorbid conditions Past Medical History Past Medical History: Diabetes Mellitus, Osteoarthritis (OA) Additional Past Medical History / Comment(s): RIGHT KNEE PAIN, HX OF GESTATIONAL DIABETES TWICE AND NEW DIAGNOSIS OF DIABETES BUT NO MEDS AT THIS TIME., NO PCP, OCCASIONAL DIARRHEA. History of Any Multi-Drug Resistant Organisms: None Reported Past Surgical History: Orthopedic Surgery, Tonsillectomy Additional Past Surgical History / Comment(s): hemorrhoidectomy february 23,arthroscopic knee right 2019 Past Anesthesia/Blood Transfusion Reactions: No Reported Reaction Additional Past Anesthesia/Blood Transfusion Reaction / Comment(s): no blood transfusion Past Psychological History: No Psychological Hx Reported Past Alcohol Use History: None Reported Additional Past Alcohol Use History / Comment(s): quit 2021 smoking cigarettes 1/2 pack day - Past Family History Father Family Medical History: Cancer Additional Family Medical History / Comment(s): liver Mother Family Medical History: Deep Vein Thrombosis (DVT) Medications and Allergies Home Medications Medication Instructions Recorded Confirmed Type Acetaminophen [Tylenol Extra 1,000 mg PO DIRECTED PRN 08/28/23 09/03/23 History Strength] Allergies Allergy/AdvReac Type Severity Reaction Status Date / Time No Known Allergies Allergy Verified 09/03/23 07:12 Surgical - Exam Vital Signs Pulse Resp BP Pulse Ox 77 16 135/91 98 09/03/23 07:13 09/03/23 07:13 09/03/23 07:13 09/03/23 07:13
--- NOTE | 2023-09-03 08:04 | P.HPADDEND ---
H&P Addendum H&P Addendum Date: 09/03/23 CBC and CMP elevated LFTs and leukocytosis. Patient reports at home 11 pound weight loss which is borderline. Patient is aware that presents with hepatomegaly may warrant cancellation. Patient wished to proceed
[2023-09-03] MEDS ORDERED: fentaNYL (PF) 50 MCG/ML 2 ML AMP ONE (08:09)
[2023-09-03] MEDS ORDERED: MIDAZOLAM 2 MG/2 ML VIAL ONE (08:09)
[2023-09-03] MEDS ORDERED: LIDOCAINE 1% INJ 10MG/ML (20 ML MDV) ONE (08:09)
[2023-09-03] MEDS ORDERED: PROPOFOL 10 MG/ML 20 ML VIAL IV ONE (08:09)
[2023-09-03] MEDS ORDERED: SUCCINYLCHOLINE CHLORIDE 200 MG/10 ML VIAL IV ONE (08:09)
[2023-09-03] MEDS ORDERED: SUGAMMADEX SODIUM 200 MG/2 ML SDV IV ONE (08:09)
[2023-09-03] MEDS ORDERED: ROCURONIUM 10 MG/ML (5 ML VIAL) IV ONE (08:09)
[2023-09-03 08:18] LABS: Basophils % (A) 0 %; Eosinophils # (A) 0.3 k/uL (0-0.7); Eosinophils % (A) 4 %; HCT 40.3 % (34.0-46.0); HGB 13.8 gm/dL (11.4-16.0); Lymphocytes # (A) 2.1 k/uL (1.0-4.8); Lymphocytes % (A) 26 %; MCH 31.2 pg (25.0-35.0); MCHC 34.3 g/dL (31.0-37.0); Monocytes # (A) 0.3 k/uL (0-1.0); Monocytes % (A) 4 %; Neutrophils # (A) 5.3 k/uL (1.3-7.7); Neutrophils % (A) 65 %; Platelet Count 245 k/uL (150-450); RBC 4.42 m/uL (3.80-5.40); WBC 8.2 k/uL (3.8-10.6)
[2023-09-03] MEDS ORDERED: LIDOCAINE 1%-EPI 1:100,000 50 ML VIAL SQ ONE (08:53)
[2023-09-03 09:10] VITALS: TEMP 97.6
[2023-09-03 09:15] LABS: Glucose,Whole Blood 122 mg/dL (70-110)
--- NOTE | 2023-09-03 09:16 | P.PN ---
Progress Note - Text Progress Note Date: 09/03/23 Additional family discussion includes findings of moderate to severe fatty liver disease with new elevated liver enzymes. Family reports patient has been complaining of headaches and taking Tylenol regularly. Review of weight assessments and hospital records demonstrate some weight gain. Recommend follow-up at the bariatric center for additional assessment due to new findings.
--- NOTE | 2023-09-03 09:44 | P.OP ---
Date of Procedure: 09/03/23 Description of Procedure: SURGEON: SABINE CASE MD PREOPERATIVE DIAGNOSES: 1. Morbid obesity due to excess calories 2. Body mass index of 41.6 3. Osteoarthritis of the knees. 4. Osteoarthritis of the lower back. 5. Hypertensive heart disease. 6. Gastroesophageal reflux disease 7. GI bleed 8. Obstructive sleep apnea 9. Tobacco abuse 10. Leukocytosis 11. Elevated liver enzymes POSTOPERATIVE DIAGNOSES: 1. Morbid obesity due to excess calories 2. Body mass index of 41.6 3. Osteoarthritis of the knees. 4. Osteoarthritis of the lower back. 5. Hypertensive heart disease. 6. Gastroesophageal reflux disease 7. GI bleed 8. Obstructive sleep apnea 9. Tobacco abuse 10. Leukocytosis 11. Elevated liver enzymes 12. Severe hepatomegaly with fatty liver disease OPERATION: 1. Robotic assisted daVinci Xi laparoscopic sleeve gastrectomy ABORTED 2. Diagnostic laparoscopy ANESTHESIA: Gen. local anesthetic ESTIMATED BLOOD LOSS: 5 mL SPECIMENS REMOVED: None COMPLICATIONS: None. FINDINGS: 1. Severe hepatomegaly with fatty liver disease prohibiting procedure for sleeve gastrectomy INDICATIONS: Cheyanne Lui is a 38-year-old female who comes with lifelong morbid obesity. As result of morbid obesity, she has developed osteoarthritis of the hips and knees, hypertensive heart disease. She completed medical assessment. She has completed psychological risk assessment. All surgical options were reviewed. She elected for sleeve gastrectomy. At height of 5 feet 2 inches, her ideal body weight is 135 pounds. She comes in 227 pounds from 225 pounds, 6 months ago. Her body mass index is 41.6. She is 92 pounds overweight. All surgical options for morbid obesity had been described using the [place] [facility]ariat[facility] collaborative comorbidity resolution including complication risk score. A second-generation bariatric consent form was described in detail including the possibility of protein malnutrition, leaks, gastric stricture, venous thrombosis, gastroesophageal reflux disease, need for further surgery for which she demonstrated understanding. Benefits and risks of the procedure were described at length. Informed consent was obtained. Additionally, patient specifically educated to adhere to 2 week high-protein low carb diet to address hepatomegaly with anticipated weight loss over 10 pounds. Patient is aware that noncompliance or persistent hepatomegaly may lead to cancellation of her surgery. Patient had agreed to proceed knowing the risks. DESCRIPTION: The patient was brought into the operating room theater. Preoperatively she had received Lovenox subcutaneously for DVT prophylaxis. Additionally she had Peridex oral solution as an oral decontaminant. After general induction, the abdomen was prepped and draped in standard sterile fashion. An Ioban draping was placed along the abdomen. A robotic da Leida Xi system was prepped and primed. At 15 cm from the xiphoid, proposed port sites were marked with indelible marker along the anterior axillary line bilaterally, mid axillary line bilaterally with each ports were marked 10 to 15 cm from each other. The robotic stapler port was marked for the right midclavicular line. A 5 mm 0 degrees laparoscopic trocar entry was performed along the left upper quadrant. The abdomen was insufflated to 15 mmHg pressure was tolerated well. Diagnostic laparoscopy demonstrated no injury to bowel, viscera, or mesentery. The liver was large with hepatomegaly including evidence of severe fatty liver disease. The liver edge was round demonstrating moderate to severe hepatomegaly prohibiting progression of her case. With this finding, case was aborted. The incision was closed using subcuticular interrupted suture of 4-0 Monocryl. Exofin was applied to the skin once the skin had been cleansed. At the end of the procedure, needle, sponge, and instrument count was verified correct by the fire sprinkler service technician. The patient was taken to the postanesthesia care unit in stable condition. Intraoperative findings were shared with the patient's family including follow- up at the bariatric center regarding new findings of elevated liver enzymes and severe fatty liver disease. Plan - Discharge Summary Discharge Rx Participant: No New Discharge Prescriptions: New Ibuprofen [Motrin] 600 mg PO Q8HR PRN #30 tab PRN Reason: Pain Continue Acetaminophen [Tylenol Extra Strength] 1,000 mg PO DIRECTED PRN PRN Reason: Pain Discharge Medication List Acetaminophen [Tylenol Extra Strength] 1,000 mg PO DIRECTED PRN 08/28/23 [History] Ibuprofen [Motrin] 600 mg PO Q8HR PRN #30 tab 09/03/23 [Rx] Follow up App[facility]ment(s[facility] [place] [facility] - [facility]05/23 2:00 pm Patient Instructions/Handouts: Non-Alcoholic Fatty Liver Disease (DC) Activity/Diet/Wound Care/Special Instructions: No lifting over 10 pounds in 2 weeks until Sep 17December shower. No bath tub soaks for two weeks until Sep 17 Diet as tolerated. Use Tylenol, simethicone and ibuprofen or Aleve scheduled for the next 24-48 hours for best pain relief. Use ice along incisions for today to prevent swelling. Discharge Disposition: HOME SELF-CARE
--- NOTE | 2023-09-03 09:46 | P.DS ---
Providers Date of admission: 09/03/23 06:58 Expected date of discharge: 09/03/23 Attending physician: Vickie Lin Primary care physician: Stated None Hospital Course: POSTOPERATIVE DIAGNOSES: 1. Morbid obesity due to excess calories 2. Body mass index of 41.6 3. Osteoarthritis of the knees. 4. Osteoarthritis of the lower back. 5. Hypertensive heart disease. 6. Gastroesophageal reflux disease 7. GI bleed 8. Obstructive sleep apnea 9. Tobacco abuse 10. Leukocytosis 11. Elevated liver enzymes 12. Severe hepatomegaly with fatty liver disease COURSE: Cheyanne Lui is a 38-year-old female who comes with lifelong morbid obesity. As result of morbid obesity, she has developed osteoarthritis of the hips and knees, hypertensive heart disease. She completed medical assessment. She has completed psychological risk assessment. All surgical options were reviewed. She elected for sleeve gastrectomy. At height of 5 feet 2 inches, her ideal body weight is 135 pounds. She comes in 227 pounds from 225 pounds, 6 months ago. Her body mass index is 41.6. She is 92 pounds overweight. Patient had undergone a 2 week high-protein low-carb diet with new findings of fatty liver disease including limited weight loss. Intraoperative findings demonstrated severe fatty liver disease prohibiting her procedure. Her procedure was aborted. Patient was discharged home in stable condition. Procedures: 12. Severe hepatomegaly with fatty liver disease OPERATION: 1. Robotic assisted daVinci Xi laparoscopic sleeve gastrectomy ABORTED 2. Diagnostic laparoscopy ANESTHESIA: Gen. local anesthetic ESTIMATED BLOOD LOSS: 5 mL SPECIMENS REMOVED: None COMPLICATIONS: None. FINDINGS: 1. Severe hepatomegaly with fatty liver disease prohibiting procedure for sleeve gastrectomy INDICATIONS: Cheyanne Lui is a 38-year-old female who comes with lifelong morbid obesity. As result of morbid obesity, she has developed osteoarthritis of the hips and knees, hypertensive heart disease. She completed medical assessment. She has completed psychological risk assessment. All surgical options were reviewed. She elected for sleeve gastrectomy. At height of 5 feet 2 inches, her ideal body weight is 135 pounds. She comes in 227 pounds from 225 pounds, 6 months ago. Her body mass index is 41.6. She is 92 pounds overweight. All surgical options for morbid obesity had been described using the [place] [facility]ariat[facility] collaborative comorbidity resolution including complication risk score. A second-generation bariatric consent form was described in detail including the possibility of protein malnutrition, leaks, gastric stricture, venous thrombosis, gastroesophageal reflux disease, need for further surgery for which she demonstrated understanding. Benefits and risks of the procedure were described at length. Informed consent was obtained. Patient Condition at Discharge: Stable Plan - Discharge Summary Discharge Rx Participant: No New Discharge Prescriptions: New Ibuprofen [Motrin] 600 mg PO Q8HR PRN #30 tab PRN Reason: Pain Continue Acetaminophen [Tylenol Extra Strength] 1,000 mg PO DIRECTED PRN PRN Reason: Pain Discharge Medication List Acetaminophen [Tylenol Extra Strength] 1,000 mg PO DIRECTED PRN 08/28/23 [History] Ibuprofen [Motrin] 600 mg PO Q8HR PRN #30 tab 09/03/23 [Rx] Follow up Appointment(s[facility] [place] [facility] - 09/05/23 2:00 pm Patient Instructions/Handouts: Non-Alcoholic Fatty Liver Disease (DC) Activity/Diet/Wound Care/Special Instructions: No lifting over 10 pounds in 2 weeks until Sep 17December shower. No bath tub soaks for two weeks until Sep 17 Diet as tolerated. Use Tylenol, simethicone and ibuprofen or Aleve scheduled for the next 24-48 hours for best pain relief. Use ice along incisions for today to prevent swelling. Discharge Disposition: HOME SELF-CARE
[2023-09-03 09:57] VITALS: BP 135/73; PULSE 80
[2023-09-03 10:24] LABS: Potassium 3.8 mmol/L (3.5-5.1)
[2023-09-03 10:25] LABS: ALT 57 U/L (4-34); AST 45 U/L (14-36); African American GFR (CKD) >90 (>60 ml/min/1.73 sqM); Albumin 4.2 g/dL (3.5-5.0); Alkaline Phosphatase 57 U/L (38-126); Anion Gap 14 mmol/L; Blood Urea Nitrogen 12 mg/dL (7-17); Carbon Dioxide 23 mmol/L (22-30); Chloride 102 mmol/L (98-107); Glucose 141 mg/dL (74-99); Non-African American GFR(CKD) >90 (>60 ml/min/1.73 sqM); Sodium 139 mmol/L (137-145); Total Bilirubin 0.6 mg/dL (0.2-1.3)
== END 2023-09-03 10:39 | disposition home or self-care (01) | DRG 989 ==
LOC: 2ORMAIN 06:58
PROVIDERS: ADMIT Surgery Plastic and Reconstructive Surgery; ATTEND Surgery Plastic and Reconstructive Surgery
PROC: 0FJ04ZZ Inspection of Liver, Percutaneous Endoscopic Approach (ICD-10-PCS; principal; 2023-09-03 08:15)
DX: E66.01 Morbid (severe) obesity due to excess calories (principal); D72.829 Elevated white blood cell count, unspecified; Z53.09 Procedure and treatment not carried out because of other contraindication; F17.210 Nicotine dependence, cigarettes, uncomplicated; G47.33 Obstructive sleep apnea (adult) (pediatric); I11.9 Hypertensive heart disease without heart failure; K21.9 Gastro-esophageal reflux disease without esophagitis; K76.0 Fatty (change of) liver, not elsewhere classified; M16.0 Bilateral primary osteoarthritis of hip; M17.0 Bilateral primary osteoarthritis of knee; S83.209A Unspecified tear of unspecified meniscus, current injury, unspecified knee, initial encounter; Z68.41 Body mass index [BMI] 40.0-44.9, adult; Z80.0 Family history of malignant neoplasm of digestive organs; Z82.49 Family history of ischemic heart disease and other diseases of the circulatory system; Z86.32 Personal history of gestational diabetes
CPT/HCPCS: 80053; 81025; 85025

== ENCOUNTER → 2023-09-05 | Outpatient (CLI) | payer BC ==
[2023-09-05 16:35] VITALS: BP 131/85; PULSE 65; TEMP 98.2; BMI 40.4
--- NOTE | 2023-09-05 17:00 | P.BASOAP ---
Subjective Progress Note Date: 09/05/23 DATE OF SERVICE:09/05/23 CHIEF COMPLAINT: Morbid obesity due to excess calories HISTORY OF PRESENT ILLNESS: Cheyanne Lui is a 38-year-old female status post aborted sleeve gastrectomy 09/03/2023. She reports adhering to her diet. Weight loss of only 8 pounds in 2 weeks. At height of 5 feet 3 inches, her ideal body weight is 140 pounds. She comes in 228 pounds from 236 pounds 2 weeks ago. She has lost 8 pounds in 2 weeks. Her body mass index is 40.4. She is 88 pounds overweight. PHYSICAL EXAM: VITAL SIGNS: Height 5 foot 3 inches, weight 228 pounds. BMI 40.4 Vital Signs Temp 98.2 F 09/05/23 16:30 Pulse 65 09/05/23 16:30 Resp BP 131/85 09/05/23 16:30 Pulse Ox FiO2 GENERAL: Well-developed in no acute distress. HEENT: No scleral icterus. Extraocular movements grossly intact. Hears conversational speech. No nasal drainage. NECK: Supple without lymphadenopathy. CHEST: Nonlabored respirations with equal bilateral excursions. CARDIOVASCULAR: Regular rate and regular rhythm. Distal 2+ pulses. ABDOMEN: Incision intact. MUSCULOSKELETAL: No clubbing, cyanosis. NEURO: No focal or lateralizing signs. Cranial nerves 2 through 12 grossly within normal limits. PSYCH: Appropriate affect. Alert and oriented to person, place and time. SKIN: Good skin turgor. Well perfused. ASSESSMENT: 1. Morbid obesity due to excess calories 2. Body mass index due to excess calories, BMI 41.8 to 40.4 3. Diabetes type 2, [id number] 4. Osteoarthritis lower back 5. Osteoarthritis bilateral knees 6. Osteoarthritis bilateral hips 7. Aborted status post sleeve gastrectomy 8. Elevated liver enzymes 9. Dietary surveillance and counseling PLAN: 1. May return to work this Sunday and hold FMLA and short-term disability 2. She has elevated liver enzymes. Recommend ultrasound of the gallbladder for elevated stones. 3. Recommend discontinue tylenol for elevated LFTs. 4. Recommend dietary modification for 3 weeks with anticipated weight loss of 25 pounds prior to neck surgery. 5. Return to work anticipated for 09/07/2023 Objective - Vital Signs Vital signs: Vital Signs Temp 98.2 F 09/05/23 16:30 Pulse 65 09/05/23 16:30 Resp BP 131/85 09/05/23 16:30 Pulse Ox FiO2 Intake & Output 09/04/23 09/05/23 09/05/23 18:59 06:59 18:59 Weight 103.419 kg Assessment/Plan Plan: Date: 09/05/23 Initial Weight: Initial BMI: Current Weight: 103.419 kg Current BMI: 40.4 Type of Surgery: Total Volume in Band: Previous Volume: Volume Removed: Volume Added: Band Size:
--- NOTE | 2023-09-05 17:03 | P.BASOAP ---
Subjective Progress Note Date: 09/05/23 She comes on with US gallbladder and elevated stones. NO more tylenol for elevated LFTs. Needs 3 weeks diet modified. lostin 25 months weight loss. RTW 09/07 Objective - Vital Signs Vital signs: Vital Signs Temp 98.2 F 09/05/23 16:30 Pulse 65 09/05/23 16:30 Resp BP 131/85 09/05/23 16:30 Pulse Ox FiO2 Intake & Output 09/04/23 09/05/23 09/05/23 18:59 06:59 18:59 Weight 103.419 kg
--- NOTE | 2023-09-05 17:06 | P.PN ---
Progress Note - Text Progress Note Date: 09/05/23 To whom it may concern: Cheyanne Lui is under my surgical care. She had attempted surgery Sunday, September 03, 2023 but was not completed. She will need completion of her surgery anticipated in October 2023. She may return to work Thursday, September 07, 2023. Regards, Vickie Lin MD FACS
== END ==
LOC: BARWHC3 15:49
PROVIDERS: ATTEND Surgery Plastic and Reconstructive Surgery
DX: E66.01 Morbid (severe) obesity due to excess calories (principal); E11.9 Type 2 diabetes mellitus without complications; M47.816 Spondylosis without myelopathy or radiculopathy, lumbar region; M17.0 Bilateral primary osteoarthritis of knee; M16.0 Bilateral primary osteoarthritis of hip; F17.200 Nicotine dependence, unspecified, uncomplicated; R74.01 Elevation of levels of liver transaminase levels; Z71.3 Dietary counseling and surveillance; Z98.84 Bariatric surgery status; Z68.41 Body mass index [BMI] 40.0-44.9, adult
CPT/HCPCS: 99211

== ENCOUNTER → 2023-09-20 | Outpatient (CLI) | payer BC ==
--- NOTE | 2023-09-20 09:35 | NM ---
EXAMINATION TYPE: NM hepatobiliary w EF DATE OF EXAM: 09/20/2023 COMPARISON: NONE CLINICAL INDICATION: Female, 38 years old with history of R94.5 ABNORMAL RESULTS OF LIVER FUNCTION ST UDIES; TECHNIQUE: After the intravenous administration of 5.11 mCi Tc 99m Mebrofenin hepatobiliary scintigra phy is performed. Immediate images post injection. FINDINGS: There is satisfactory initial accumulation of tracer by the liver. The gallbladder is visualized wit hin 6 minutes. The small bowel activity is noted within 10 minutes. At one hour 8 ounces of oral en sure plus is given to mimic CCK and gallbladder ejection fraction is calculated at 93 %, elevated abo ve the expected range. IMPRESSION: 1. No scintigraphic evidence for acute/chronic cholecystitis or biliary dyskinesia. 2. Increased gallbladder ejection fraction at 93% may be seen with gallbladder hyperkinesis.
--- NOTE | 2023-09-21 09:53 | US ---
EXAMINATION TYPE: US gallbladder DATE OF EXAM: 09/21/2023 COMPARISON: NONE CLINICAL INDICATION: Female, 38 years old with history of R94.5 Abnormal liver function tests; Patien t went in for gastric sleeve and liver appeared fatty to surgeon TECHNIQUE: Multiple sonographic images of the right upper quadrant are obtained. FINDINGS: EXAM MEASUREMENTS: Liver Length: 15.6 cm Gallbladder Wall: 0.3 cm CBD: 0.6 cm Right Kidney: 11.3 x 4.3 x 5.8 cm PATENT LEATHER SORTER NOTES: Pancreas: wnl Liver: Increased attenuation , no dilated ducts cystic structures or masses. Gallbladder: wnl Evidence for sonographic Fernandez's sign: No CBD: wnl Right Kidney: wnl IMPRESSION: 1. No acute process. 2. Hepatic steatosis.
== END | disposition home or self-care (01) ==
LOC: RADNMMAIN 06:59
PROVIDERS: ATTEND Surgery Plastic and Reconstructive Surgery
DX: K82.8 Other specified diseases of gallbladder (principal); R94.5 Abnormal results of liver function studies
CPT/HCPCS: 78226; A9537; 76705

== ENCOUNTER → 2023-09-21 | Outpatient (CLI) | payer BC | END | disposition home or self-care (01) | LOC: RADUSWWP 08:58 | PROVIDERS: ATTEND Surgery Plastic and Reconstructive Surgery | DX: Z53.9 Procedure and treatment not carried out, unspecified reason (principal) ==

== ENCOUNTER → 2024-01-09 | Outpatient (CLI) | payer BC ==
[2024-01-09 19:12] LABS: Basophils # (A) 0.06 X 10*3/uL (0.00-0.10); Basophils % (A) 0.6 %; Eosinophils # (A) 0.36 X 10*3/uL (0.04-0.35); Eosinophils % (A) 3.7 %; HCT 44.2 % (37.2-46.3); HGB 14.6 g/dL (12.0-15.0); Lymphocytes # (A) 2.95 X 10*3/uL (0.90-5.00); Lymphocytes % (A) 30.1 %; MCH 30.6 pg (27.0-32.0); MCV 92.7 FL (80.0-97.0); Mean Platelet Volume 10.8 FL (9.5-12.2); Monocytes # (A) 0.66 X 10*3/uL (0.20-1.00); Monocytes % (A) 6.7 %; NRBC Per 100 WBC 0 X 10*3/uL (0.00-0.01); Neutrophils # (A) 5.76 X 10*3/uL (1.80-7.70); Neutrophils % (A) 58.7 %; Platelet Count 313 X 10*3/uL (140-440); RBC 4.77 X 10*6/uL (4.10-5.20); RDW 12.1 % (11.5-14.5); WBC 9.81 X 10*3/uL (4.50-10.00)
[2024-01-09 19:25] LABS: BUN/Creat Ratio 16.22 Ratio (12.00-20.00); Blood Urea Nitrogen 14.6 mg/dL (9.0-27.0); Carbon Dioxide 25.2 mmol/L (21.6-31.8); Chloride 102 mmol/L (96-109); Glucose 109 mg/dL (70-110); Potassium 4.2 mmol/L (3.5-5.5); Sodium 140 mmol/L (135-145)
[2024-01-09 19:26] LABS: ALT 51 U/L (8-44); AST 33 U/L (13-35); Albumin 4.8 g/dL (3.8-4.9); Albumin/Globulin Ratio 1.92 Ratio (1.60-3.17); Alkaline Phosphatase 53 U/L (41-126); Calcium 9.9 mg/dL (8.7-10.3); Globulin 2.5 g/dL (1.6-3.3); Total Bilirubin 0.4 mg/dL (0.3-1.2); Total Protein 7.3 g/dL (6.2-8.2)
== END | disposition home or self-care (01) ==
LOC: LABPAT 15:43
PROVIDERS: ATTEND Surgery Plastic and Reconstructive Surgery
DX: Z01.812 Encounter for preprocedural laboratory examination (principal)
CPT/HCPCS: 36415; 80053; 85025; 86850; 86900; 86901

== ENCOUNTER → 2024-01-09 | Outpatient (CLI) | payer BC ==
--- NOTE | 2024-01-09 15:21 | P.BASOAP ---
Subjective Progress Note Date: 01/09/24 She has lost weight. Her highest weight is 235 pounds. target for return to work. FDD plan. For sleeve. Objective - Vital Signs Vital signs: Vital Signs Temp 98.9 F 01/09/24 14:42 Pulse 70 01/09/24 14:42 Resp 14 01/09/24 14:42 BP 130/88 01/09/24 14:42 Pulse Ox FiO2 Intake & Output 01/08/24 01/09/24 01/09/24 18:59 06:59 18:59 Weight 98.883 kg Assessment/Plan Plan: Date: 01/09/24 Initial Weight: Initial BMI: Current Weight: 98.883 kg Current BMI: 38.6 Type of Surgery: Vertical Sleeve Gastrectomy Total Volume in Band: Previous Volume: Volume Removed: Volume Added: Band Size:
[2024-01-09 15:23] VITALS: BP 130/88; PULSE 70; RESP 14; TEMP 98.9; BMI 38.6
== END ==
LOC: BARWHC3 14:02
PROVIDERS: ATTEND Surgery Plastic and Reconstructive Surgery
DX: E66.01 Morbid (severe) obesity due to excess calories (principal); Z87.891 Personal history of nicotine dependence; Z68.38 Body mass index [BMI] 38.0-38.9, adult
CPT/HCPCS: 99211

== ENCOUNTER 2024-01-14 09:34 | Inpatient (IN) | payer BC ==
[~2024-01-14 09:34] MED LIST changes: -DEXAMETHASONE SOD PHOSPHATE 4 MG/ML 1 ML VIAL IV ONE; -ENOXAPARIN 40 MG/0.4 ML SYRINGE SQ PRN; -HYDROmorphone 0.5 MG/0.5 ML SYRINGE IVP PRN; -LACTATED RINGERS 1,000 ML IV SCH; -LIDOCAINE 1% (10MG/ML) FOR IV START INTRADERMA PRN; +MIDAZOLAM 2 MG/2 ML VIAL IV PRN; -ONDANSETRON 4 MG/2 ML VIAL IVP ONE; -SCOPOLAMINE 1 MG/72 HR PATCH TRANSDERM ONE; -droPERidol 5 MG/2 ML VIAL IVP PRN
--- NOTE | 2024-01-14 09:53 | P.GSHP ---
History of Present Illness H&P Date: 01/14/24 CHIEF COMPLAINT: Morbid obesity HISTORY OF PRESENT ILLNESS: Cheyanne Lui is a 38-year-old female who comes with lifelong morbid obesity. She comes in looking into the sleeve gastrectomy. She has family history of morbid obesity. She has high blood pressure. She has sleep apnea. She has family history of deep venous thrombosis. She reports knee pain and lower back pain. She has recently obtained her weight loss goal of 5% last week. He had prior diagnostic laparoscopy demonstrating severe fatty liver disease. She has modified her diet. At height of 5 feet 2 inches, her ideal body weight is 135 pounds. Highest weight is 235 pounds. She comes in 218 pounds from 227 pounds, 4 months ago. Her highest body mass index is 42.4. She is 100 pounds overweight. PAST MEDICAL HISTORY: 1. Morbid obesity due to excess calories 2. Body mass index of 42.4 3. Osteoarthritis of the knees. 4. Osteoarthritis of the lower back. 5. Hypertensive heart disease. 6. Gastroesophageal reflux disease 7. GI bleed 8. Obstructive sleep apnea PAST SURGICAL HISTORY: 1. No abdominal surgeries HOME MEDICATIONS: As above ALLERGIES: As above SOCIAL HISTORY: Tobacco use. FAMILY HISTORY: No family history of ulcerative colitis disease or Crohn's disease. Family history of morbid obesity. No lupus in the family. No reports of stomach or esophageal cancer. Her mother had DVTs. Dad had liver cancer. REVIEW OF ORGAN SYSTEMS: CONSTITUTIONAL: At height of 5 feet 2 inches, her ideal body weight is 135 pounds. Highest weight is 235 pounds. She comes in 218 pounds from 227 pounds, 4 months ago. Her highest body mass index is 42.4. She is 100 pounds overweight. HEENT: Denies any active troubles with vision or hearing. Denies troubles with swallowing. ENDOCRINE: Denies diabetes. No hypothyroidism. CARDIOVASCULAR: Denies past reports of palpitations or heart attacks or chest pain. Has hypertensive heart disease. RESPIRATORY: Has daytime somnolence. Has asthma. Has chronic obstructive pulmonary disease. Has tobacco use. GASTROINTESTINAL: Denies any bright red blood per rectum. No diarrhea. No constipation. Has gastroesophageal reflux disease. GENITOURINARY: No recent blood in urine MUSCULOSKELETAL: Has lower back pain and joint pain. Has osteoarthritis of the knees. NEURO: No headaches. No seizure disorders. PSYCH: Denies depression. No suicidal ideation. RHEUMATOLOGIC: No lupus. No rheumatoid arthritis. HEMATOLOGIC: Denies any abnormal bleeding or bruising. Past history of DVTs in mother. SKIN: No rash. No skin cancer. PHYSICAL EXAM: VITAL SIGNS: Height 5 foot 2 inches, weight 218 pounds. GENERAL: Well-developed in no acute distress. HEENT: No scleral icterus. Extraocular movements grossly intact. Hears conversational speech. No nasal drainage. NECK: Supple without lymphadenopathy. CHEST: Nonlabored respirations with equal bilateral excursions. CARDIOVASCULAR: Regular rate and regular rhythm. Distal 2+ pulses. ABDOMEN: Obese, soft, nontender, nondistended. MUSCULOSKELETAL: No clubbing, cyanosis. NEURO: No focal or lateralizing signs. Cranial nerves 2 through 12 grossly within normal limits. PSYCH: Appropriate affect. Alert and oriented to person, place and time. SKIN: Good skin turgor. Well perfused. ASSESSMENT: 1. Morbid obesity due to excess calories 2. Body mass index of 42.4 3. Osteoarthritis of the knees. 4. Osteoarthritis of the lower back. 5. Hypertensive heart disease. 6. Gastroesophageal reflux disease 7. GI bleed 8. Obstructive sleep apnea 9. Tobacco abuse in remission 10. Leukocytosis 11. Fatty liver disease PLAN: 1. Bariatric options between a sleeve, band and a Emani-en-Y gastric bypass were reviewed in detail. The patient elected for a sleeve gastrectomy. Robotic assisted approach described. 2. The [place] [facility] Data was also reviewed with benefits and risks as described. 3. An 8 page second-generation bariatric consent form was reviewed in detail including potential of bleeding, infection, leaks, adequate weight loss, nutritional deficiencies which the patient demonstrated understanding of the risks. 4. A 2 week high-protein low caloric 800 kcal diet described to address hepatomegaly for which she achieved 5% weight loss goal. 5. Preoperative labs including complete metabolic panel and CBC with type and screen recommended. 6. DVT prophylaxis per [place] [facility]. 7. Antibiotic prophylaxis. 8. Inpatient hospitalization anticipated for more than 2 nights. 9. All questions and concerns were addressed with the patient. 10. The patient is at elevated risk for perioperative complications with sleep apnea and hypertensive heart disease. 11. Overall, patient has expressed understanding of bariatric care including postoperative diet and commitment of lifestyle. Patient should benefit from surgical intervention for correction of morbid obesity. 12. She is elevated risk due to pre-existing comorbid conditions Past Medical History Past Medical History: Diabetes Mellitus, Osteoarthritis (OA) Additional Past Medical History / Comment(s): RIGHT KNEE PAIN, HX OF GESTATIONAL DIABETES TWICE AND NEW DIAGNOSIS OF DIABETES BUT NO MEDS AT THIS TIME, OCCASIONAL DIARRHEA. History of Any Multi-Drug Resistant Organisms: None Reported Past Surgical History: Orthopedic Surgery, Tonsillectomy Additional Past Surgical History / Comment(s): Hemorrhoidectomy, right knee arthroscopy. Past Anesthesia/Blood Transfusion Reactions: No Reported Reaction Additional Past Anesthesia/Blood Transfusion Reaction / Comment(s): No blood transfusion hx. Smoking Status: Former smoker - Past Family History Father Family Medical History: Cancer Additional Family Medical History / Comment(s): Liver cancer. Mother Family Medical History: Deep Vein Thrombosis (DVT) Medications and Allergies Home Medications Medication Instructions Recorded Confirmed Type Ibuprofen [Motrin] 600 mg PO Q8HR PRN #30 tab 09/03/23 01/09/24 Rx Allergies Allergy/AdvReac Type Severity Reaction Status Date / Time No Known Allergies Allergy Verified 01/09/24 16:05
[2024-01-14 10:08] LABS: Glucose,Whole Blood 98 mg/dL (70-110)
[2024-01-14] MEDS: LACTATED RINGERS 1,000 ML IV ONE (10:09)
[2024-01-14] MEDS: ALVIMOPAN 12 MG CAPSULE PO ONE (10:10)
[2024-01-14] MEDS: ONDANSETRON 4 MG/2 ML VIAL IVP ONE (10:10)
[2024-01-14] MEDS: ACETAMINOPHEN TAB 500 MG TAB PO ONE (10:10)
[2024-01-14] MEDS: DEXAMETHASONE SOD PHOSPHATE 4 MG/ML 1 ML VIAL IVP ONE (10:10)
[2024-01-14] MEDS: CHLORHEXIDINE GLUCONATE 15 ML CUP MUCOUS MEM ONE (10:13)
[2024-01-14] MEDS: ENOXAPARIN 40 MG/0.4 ML SYRINGE SQ PRN (10:20)
[2024-01-14] MEDS: LIDOCAINE 1%-EPI 1:100,000 20 ML VIAL SQ ONE ×2 (10:48→11:21)
[2024-01-14] MEDS ORDERED: GLYCOPYRROLATE 0.2 MG/ML 2 ML VIAL ONE (10:51)
[2024-01-14] MEDS ORDERED: fentaNYL (PF) 50 MCG/ML 2 ML AMP ONE (10:51)
[2024-01-14] MEDS ORDERED: NEOSTIGMINE 1 MG/ML 10 ML VIAL ONE (10:51)
[2024-01-14] MEDS ORDERED: LIDOCAINE 1% INJ 10MG/ML (20 ML MDV) ONE (10:51)
[2024-01-14] MEDS ORDERED: HYDROmorphone (PF) 1 MG/ML ONE (10:51)
[2024-01-14] MEDS ORDERED: MIDAZOLAM 2 MG/2 ML VIAL ONE (10:51)
[2024-01-14] MEDS ORDERED: PROPOFOL 10 MG/ML 20 ML VIAL IV ONE (10:51)
[2024-01-14] MEDS ORDERED: ROCURONIUM 10 MG/ML (5 ML VIAL) IV ONE (10:51)
[2024-01-14] MEDS ORDERED: SUCCINYLCHOLINE CHLORIDE 200 MG/10 ML VIAL IV ONE (10:51)
[2024-01-14] MEDS: LACTATED RINGERS 1,000 ML IV SCH (12:34)
[2024-01-14] MEDS ORDERED: diphenhydrAMINE 50 MG/ML 1 ML VIAL IVP PRN (12:39)
[2024-01-14] MEDS ORDERED: HYDROmorphone 1 MG/ML 1 ML SYRINGE IVP PRN (12:39)
[2024-01-14] MEDS ORDERED: NALOXONE 0.4 MG/ML 1 ML VIAL IV PRN ×2 (12:39→12:41)
--- NOTE | 2024-01-14 12:45 | P.OP ---
Date of Procedure: 01/14/24 Description of Procedure: SURGEON: SABINE CASE MD PREOPERATIVE DIAGNOSES: 1. Morbid obesity due to excess calories 2. Body mass index of 42.4 3. Osteoarthritis of the knees. 4. Osteoarthritis of the lower back. 5. Hypertensive heart disease. 6. Gastroesophageal reflux disease 7. GI bleed 8. Obstructive sleep apnea 9. Tobacco abuse in remission 10. Leukocytosis 11. Fatty liver disease POSTOPERATIVE DIAGNOSES: 1. Morbid obesity due to excess calories 2. Body mass index of 42.4 3. Osteoarthritis of the knees. 4. Osteoarthritis of the lower back. 5. Hypertensive heart disease. 6. Gastroesophageal reflux disease 7. GI bleed 8. Obstructive sleep apnea 9. Tobacco abuse in remission 10. Leukocytosis 11. Fatty liver disease 12. Chronic cholecystitis OPERATION: 1. Robotic assisted daVinci Xi laparoscopic sleeve gastrectomy with 40-Kazakh bougie, multiport. 2. Intraoperative esophagogastroduodenoscopy. ANESTHESIA: Gen. local anesthetic ESTIMATED BLOOD LOSS: 5 mL SPECIMENS REMOVED: Sleeve gastrectomy COMPLICATIONS: None. FINDINGS: 1. Negative intraoperative esophagogastrojejunoscopy leak test. 2. Mild hepatomegaly with fatty liver disease and no large hiatus hernia. 3. Total of 6 staplers used including 2 - 60 mm green, 4 - 60 mm blue robot loads used to create the gastric sleeve. 4. Sleeve gastrectomy, 25 x 6 cm 5. Mildly thickened gallbladder wall suspicious for chronic cholecystitis INDICATIONS:Cheyanne Lui is a 38-year-old female who comes with lifelong morbid obesity. She comes in looking into the sleeve gastrectomy. She has family history of morbid obesity. She has high blood pressure. She has sleep apnea. She has family history of deep venous thrombosis. She reports knee pain and lower back pain. She has recently obtained her weight loss goal of 5% last week. He had prior diagnostic laparoscopy demonstrating severe fatty liver disease. She has modified her diet. At height of 5 feet 2 inches, her ideal body weight is 135 pounds. Highest weight is 235 pounds. She comes in 218 pounds from 227 pounds, 4 months ago. Her highest body mass index is 42.4. She is 100 pounds overweight. All surgical options for morbid obesity had been described using the [place] [facility] comorbidity resolution including complication risk score. A second-generation bariatric consent form was described in detail including the possibility of protein malnutrition, leaks, gastric stricture, venous thrombosis, gastroesophageal reflux disease, need for further surgery for which she demonstrated understanding. Benefits and risks of the procedure were described at length. Informed consent was obtained. DESCRIPTION: The patient was brought into the operating room theater. Preoperatively she had received Lovenox subcutaneously for DVT prophylaxis. Additionally she had Peridex oral solution as an oral decontaminant. After general induction, the abdomen was prepped and draped in standard sterile fashion. An Ioban draping was placed along the abdomen. A robotic da Leida Xi system was prepped and primed. At 15 cm from the xiphoid, proposed port sites were marked with indelible marker along the anterior axillary line bilaterally, mid axillary line bilaterally with each ports were marked 10 to 15 cm from each other. The robotic stapler port was marked for the right midclavicular line. A 5 mm 0 degrees laparoscopic trocar entry was performed along the left upper quadrant. The abdomen was insufflated to 15 mmHg pressure was tolerated well. Diagnostic laparoscopy demonstrated no injury to bowel, viscera, or mesentery. No evidence of large hiatus hernia was identified. The liver edge was slightly thickened due to mild hepatomegaly and fatty liver disease despite 2-week protein diet. The gallbladder wall was mildly thickened suspicious for chronic cholecystitis. A 8 mm port was placed along the left upper abdominal wall after exchanging the 5 mm port. A separate 8 mm port was placed along the left lateral abdominal wall. Please note that the ports were placed at least 20 cm away from the target anatomy. Care was taken to check each robotic arms were safely away from collision with the bed or the patient. At the epigastrium, a medium sized Riana liver retractor was placed under direct visualization with the Iron Cardiopulmonary Technician And Eeg Tech placed under the right shoulder of the patient. Next, 12-mm robot stapler port was placed along the right upper quadrant. The camera 8-mm port was maintained along the epigastrium. The patient was repositioned in reverse Trendelenburg position at 21-degrees after lowering the bed. The robot was docked along the left side of the patient. Using a grasper for arm 4, a vessel sealer for arm 3, including grasper for arm 1, the robotic system was docked and primed as described. Instruments were interchanged by the management assistant for stapler loads. The camera was placed at 30- degrees down. I had sat at the console. The pylorus was identified and 6 cm proximally along the greater curvature of the stomach, the short gastrics were mobilized upwards to the angle of His using a vessel sealer. Hemostasis was excellent during this portion of the procedure. Next, the upper pole of the stomach was adherent to the left manuel, which was gently dissected free using atraumatic grasper. I went to the head of the bed and placed 40-Kazakh blunt bougie into the stomach. The bougie was readjusted by the nurse cooling tower technician. Robotic stapler green 60 mm x 2, and blue 60 mm loads x 4 were used to create the sleeve. Initial firing was across the antrum of the stomach towards the angle of His. The staple line was linear without corkscrewing. The space from the angularis incisura of the sleeve was approximately 4 cm. I then went to the head of the bed to perform the intraoperative esophagogastroduodenoscopy leak test. The bougie was withdrawn. The upper pole of the stomach was bathed using normal saline solution. The scope was withdrawn with careful inspection along the staple line for which no leaks were found along the entire length. Additionally,the sleeve was completely hemostatic without any encroachment along the angularis incisura. Its topology was a soft "J". No stricture was encountered upon placement of the scope. The GI tract was desufflated. The patient tolerated this portion of the procedure well. The scope was completely withdrawn. The robot was undocked. I then rescrubbed into case, whereby the irrigation fluid was aspirated from the abdominal cavity. Tisseel fibrin sealant was placed along the entire staple length. Once dried the Riana liver retractor was removed. Attention was now brought to removal of the specimen. The distal end of the sleeve gastrectomy specimen was brought out through the 12 mm port at the left upper quadrant. The specimen was gently removed en total. No contamination had occurred during this process. All instruments and pneumoperitoneum including irrigation fluid was removed from the abdominal cavity. The 12 mm port site was closed using 0-Vicryl and Angelo Westson and irrigated with diluted hydrogen peroxide. The final incisions were closed using subcuticular interrupted suture of 4-0 Monocryl. Exofin was applied to the skin once the skin had been cleansed. OptiFoam dressing was placed along the stomach extraction site. The sleeve specimen was measured and checked also for leaks which none were found. At the end of the procedure, needle, sponge, and instrument count was verified correct by the insulator technician. The patient was taken to the postanesthesia care unit in stable condition. The patient had tolerated the procedure well. Intraoperative films and findings were reviewed with the patient's family.
[2024-01-14] MEDS: ACETAMINOPHEN IV (For NPO) 1,000 MG/100 ML VIAL IVPB ONE (14:41)
[2024-01-14 15:36] LABS: Glucose,Whole Blood 200 mg/dL (70-110)
[2024-01-14] MEDS: HYDROmorphone 0.5 MG/0.5 ML SYRINGE IVP PRN (16:12)
[2024-01-14] MEDS: IV FLUID CONTINUATION 1,000 ML IV ONE (17:13)
[2024-01-14] MEDS: PANTOPRAZOLE 40 MG/10 ML VIAL IVP STA (17:29)
[2024-01-14] MEDS: CHLORHEXIDINE GLUCONATE 15 ML CUP MUCOUS MEM STA (17:29)
[2024-01-14] MEDS: DEXAMETHASONE SOD PHOSPHATE 10 MG/ML 1 ML VIAL IVP STA (17:30)
[2024-01-14] MEDS: SCOPOLAMINE 1 MG/72 HR PATCH TRANSDERM STA (17:30)
[2024-01-14] MEDS: SIMETHICONE 80 MG CHEWABLE PO SCH (17:51)
[2024-01-14] MEDS: ONDANSETRON 4 MG/2 ML VIAL IVP SCH (17:51)
[2024-01-14] MEDS: SODIUM CHLORIDE 0.9% 2,000 ML IV ONE (17:51)
[2024-01-14] MEDS: DEXAMETHASONE SOD PHOSPHATE 4 MG/ML 1 ML VIAL IVP SCH (17:51)
[2024-01-14] MEDS: ACETAMINOPHEN IV (For NPO) 1,000 MG in EMPTY BAG 1 BAG IVPB SCH (17:52)
[2024-01-14] MEDS: HYOSCYAMINE ORAL DROPS 1.875 MG/15 ML BOTTLE PO SCH (18:05)
[2024-01-14] MEDS: fentaNYL PCA 500 MCG/50 ML BAG IV SCH (19:51)
[2024-01-14 20:33] LABS: Glucose,Whole Blood 172 mg/dL (70-110)
[2024-01-14] MEDS: 0.9% NACL WITH KCL 20 MEQ/L 1,000 ML IV SCH (20:42)
[2024-01-14] MEDS: ALBUTEROL NEBULIZED 2.5 MG/3 ML INHALATION SCH (21:01)
[2024-01-14] MEDS: PANTOPRAZOLE 40 MG/10 ML VIAL IV SCH (22:06)
[2024-01-15 06:16] LABS: Glucose,Whole Blood 144 mg/dL (70-110)
[2024-01-15] MEDS: 0.9% NACL WITH KCL 20 MEQ/L 1,000 ML IV SCH (07:57)
[2024-01-15] MEDS: ENOXAPARIN 40 MG/0.4 ML SYRINGE SQ SCH (07:57)
[2024-01-15 08:36] LABS: Basophils # (A) 0.02 X 10*3/uL (0.00-0.10); Basophils % (A) 0.1 %; Eosinophils # (A) 0 X 10*3/uL (0.04-0.35); Eosinophils % (A) 0 %; HCT 33.1 % (37.2-46.3); HGB 11.2 g/dL (12.0-15.0); Lymphocytes # (A) 0.68 X 10*3/uL (0.90-5.00); MCH 31.2 pg (27.0-32.0); MCHC 33.8 g/dL (32.0-37.0); MCV 92.2 FL (80.0-97.0); Mean Platelet Volume 10.7 FL (9.5-12.2); Monocytes % (A) 2.3 %; NRBC Per 100 WBC 0 X 10*3/uL (0.00-0.01); Neutrophils # (A) 15.88 X 10*3/uL (1.80-7.70); Neutrophils % (A) 93.1 %; Platelet Count 325 X 10*3/uL (140-440); RBC 3.59 X 10*6/uL (4.10-5.20); RDW 12.2 % (11.5-14.5); WBC 17.07 X 10*3/uL (4.50-10.00)
[2024-01-15 11:29] LABS: Glucose,Whole Blood 135 mg/dL (70-110)
[2024-01-15 11:37] VITALS: BMI 39.2
[2024-01-15 12:05] LABS: Carbon Dioxide 21.8 mmol/L (21.6-31.8); Chloride 106 mmol/L (96-109); Magnesium 1.8 mg/dL (1.5-2.4); Phosphorus 2.1 mg/dL (2.4-5.1); Potassium 4.4 mmol/L (3.5-5.5); Sodium 138 mmol/L (135-145)
[2024-01-15 12:06] LABS: Calcium 8.1 mg/dL (8.7-10.3)
--- NOTE | 2024-01-15 15:23 | P.PN ---
Subjective Progress Note Date: 01/15/24 CHIEF COMPLAINT: Morbid obesity HISTORY OF PRESENT ILLNESS: Patient is postop day #1 status post robotic laparoscopic sleeve gastrectomy. Patient still requiring ORE FIELDER pump for pain control. She denies any nausea or vomiting. Tolerating liquid diet. Final upper GI report is pending. Verbal report from radiologist to nurse reported a normal upper GI. Patient is afebrile. She has been up and ambulating. No flatus. WBC 17 Hgb 11.2 phosphorus 2.1 PHYSICAL EXAM: VITAL SIGNS: Reviewed GENERAL: Well-developed in no acute distress. HEENT: No sclera icterus. Extraocular movements grossly intact. Moist buccal mucosa. Head is atraumatic, normocephalic. Hears conversational speech. No nasal drai nage. NECK: Supple without lymphadenopathy. CHEST: Non-labored respirations and equal bilateral excursions. CARDIOVASCULAR: Palpable 2+ radial pulses. ABDOMEN: Soft. Nondistended. Abdominal binder in place MUSCULOSKELETAL: No clubbing or cyanosis. NEUROLOGIC: No focal or lateralizing signs. Cranial nerves II through XII grossly intact. PSYCH: Appropriate affect. Alert and oriented to person, place and time. SKIN: Well perfused. Good skin turgor. ASSESSMENT: 1. Morbid obesity due to excess calories 2. Body mass index of 42.4 3. Osteoarthritis of the knees. 4. Osteoarthritis of the lower back. 5. Hypertensive heart disease. 6. Gastroesophageal reflux disease 7. GI bleed 8. Obstructive sleep apnea 9. Tobacco abuse in remission 10. Leukocytosis 11. Fatty liver disease 12. Chronic cholecystitis PLAN: -Continue pain management -Continue bariatric clear liquid diet -Continue IV fluids -Replace phosphorus -Repeat CBC and phosphorus level in a.m. -GI prophylaxis Protonix and DVT prophylaxis Lovenox Physician Dust Collector Operator note has been reviewed by physician. Signing provider agrees with the documented findings, assessment, and plan of care. Objective - Vital Signs Vital signs: Vital Signs Temp 97.2 F L 01/15/24 13:47 Pulse 89 01/15/24 13:47 Resp 18 01/15/24 13:47 BP 124/80 01/15/24 13:47 Pulse Ox 95 01/15/24 13:47 FiO2 Intake & Output 01/14/24 01/15/24 01/15/24 18:59 06:59 18:59 Intake Total 2050 Output Total 5 Balance 2044 Weight 97.4 kg 97.4 kg Intake: IV 2049 Output: Estimated Blood Loss 5 Other: Voiding Method Toilet Toilet # Voids 1 2 - Labs CBC & Chem 7: 01/15/24 05:08 01/15/24 05:08 Labs: Abnormal Lab Results - Last 24 Hours (Table) 01/14/24 01/14/24 01/15/24 Range/Units 15:34 20:30 05:08 WBC 17.07 H (4.50-10.00) X 10*3/uL RBC 3.59 L (4.10-5.20) X 10*6/uL Hgb 11.2 L (12.0-15.0) g/dL Hct 33.1 L (37.2-46.3) % Immature Gran # 0.09 H (0.00-0.04) X 10*3/uL Neutrophils # 15.88 H (1.80-7.70) X 10*3/uL Lymphocytes # 0.68 L (0.90-5.00) X 10*3/uL Eosinophils # 0 L (0.04-0.35) X 10*3/uL BUN (9.0-27.0) mg/dL POC Glucose (mg/dL) 200 H 172 H (70-110) mg/dL Calcium (8.7-10.3) mg/dL Phosphorus (2.4-5.1) mg/dL 01/15/24 01/15/24 01/15/24 Range/Units 05:08 06:14 11:27 WBC (4.50-10.00) X 10*3/uL RBC (4.10-5.20) X 10*6/uL Hgb (12.0-15.0) g/dL Hct (37.2-46.3) % Immature Gran # (0.00-0.04) X 10*3/uL Neutrophils # (1.80-7.70) X 10*3/uL Lymphocytes # (0.90-5.00) X 10*3/uL Eosinophils # (0.04-0.35) X 10*3/uL BUN 7.0 L (9.0-27.0) mg/dL POC Glucose (mg/dL) 144 H 135 H (70-110) mg/dL Calcium 8.1 L (8.7-10.3) mg/dL Phosphorus 2.1 L (2.4-5.1) mg/dL
[2024-01-15] MEDS: POTAS-SOD-PHOS 278-164-250 MG 1 EACH PACKET PO SCH (15:51)
[2024-01-15 16:25] LABS: Glucose,Whole Blood 158 mg/dL (70-110)
[2024-01-15 20:51] LABS: Glucose,Whole Blood 146 mg/dL (70-110)
[2024-01-16 06:24] LABS: Glucose,Whole Blood 138 mg/dL (70-110)
--- NOTE | 2024-01-16 07:33 | FL ---
EXAMINATION TYPE: FL UGI DATE OF EXAM: 01/15/2024 COMPARISON: None HISTORY: Postop bariatric surgery TECHNIQUE: A single contrast UGI study is performed. FINDINGS: Contrast passes from the distal esophagus through the gastric sleeve with no significant he sitancy. No extravasation of contrast is evident. No free air is noted during this examination. Overhead radiographs were obtained which are unremarkable. Fluoroscopy time: 30 seconds DAP: 4069.95 Images: 29 IMPRESSION: 1. Normal post gastric sleeve without obstruction or hesitancy. No extravasation.
[2024-01-16] MEDS ORDERED: bisacodyL 5 MG TABLET.DR PO PRN (08:00)
[2024-01-16 08:40] LABS: Basophils # (A) 0.01 X 10*3/uL (0.00-0.10); Basophils % (A) 0.1 %; Eosinophils # (A) 0 X 10*3/uL (0.04-0.35); Eosinophils % (A) 0 %; HCT 27.6 % (37.2-46.3); HGB 9.1 g/dL (12.0-15.0); Lymphocytes # (A) 1.11 X 10*3/uL (0.90-5.00); Lymphocytes % (A) 6.7 %; MCH 31.1 pg (27.0-32.0); MCV 94.2 FL (80.0-97.0); Mean Platelet Volume 10.7 FL (9.5-12.2); Monocytes # (A) 0.41 X 10*3/uL (0.20-1.00); Monocytes % (A) 2.5 %; NRBC Per 100 WBC 0 X 10*3/uL (0.00-0.01); Neutrophils # (A) 14.81 X 10*3/uL (1.80-7.70); Platelet Count 249 X 10*3/uL (140-440); RBC 2.93 X 10*6/uL (4.10-5.20); RDW 12.9 % (11.5-14.5); WBC 16.45 X 10*3/uL (4.50-10.00)
[2024-01-16 08:51] LABS: Blood Urea Nitrogen 6.7 mg/dL (9.0-27.0); Carbon Dioxide 21.9 mmol/L (21.6-31.8); Chloride 110 mmol/L (96-109); Glucose 128 mg/dL (70-110); Phosphorus 2.6 mg/dL (2.4-5.1); Potassium 4.1 mmol/L (3.5-5.5); Sodium 142 mmol/L (135-145)
[2024-01-16 08:52] LABS: Calcium 8.2 mg/dL (8.7-10.3)
[2024-01-16 11:41] LABS: Glucose,Whole Blood 131 mg/dL (70-110)
[2024-01-16 15:32] VITALS: BP 117/71; PULSE 95; RESP 17; TEMP 98
--- NOTE | 2024-01-16 21:13 | P.DS ---
Providers Date of admission: 01/14/24 09:34 Expected date of discharge: 01/16/24 Attending physician: Vickie Lin Primary care physician: Stated None Hospital Course: POSTOPERATIVE DIAGNOSES: 1. Morbid obesity due to excess calories 2. Body mass index of 42.4 3. Osteoarthritis of the knees. 4. Osteoarthritis of the lower back. 5. Hypertensive heart disease. 6. Gastroesophageal reflux disease 7. GI bleed 8. Obstructive sleep apnea 9. Tobacco abuse in remission 10. Leukocytosis 11. Fatty liver disease 12. Chronic cholecystitis COURSE:Cheyanne Lui is a 38-year-old female who presents with morbid obesity. She completed bariatric risk assessment. Patient underwent sleeve gastrectomy without complications. Esophagram was negative. Prior to discharge, her pain was well-controlled. Nonnarcotic pain management postoperatively reviewed. Bariatric dietary reviewed. Patient expressed understanding of discharge instructions and started in close outpatient follow-up at the bariatric center in 48 to 72 hours. Pertinent Studies: Esophagram reviewed demonstrates no leak. Procedures: OPERATION: 1. Robotic assisted daVinci Xi laparoscopic sleeve gastrectomy with 40-Maori bougie, multiport. 2. Intraoperative esophagogastroduodenoscopy. ANESTHESIA: Gen. local anesthetic ESTIMATED BLOOD LOSS: 5 mL SPECIMENS REMOVED: Sleeve gastrectomy COMPLICATIONS: None. FINDINGS: 1. Negative intraoperative esophagogastrojejunoscopy leak test. 2. Mild hepatomegaly with fatty liver disease and no large hiatus hernia. 3. Total of 6 staplers used including 2 - 60 mm green, 4 - 60 mm blue robot loads used to create the gastric sleeve. 4. Sleeve gastrectomy, 25 x 6 cm 5. Mildly thickened gallbladder wall suspicious for chronic cholecystitis Patient Condition at Discharge: Good Plan - Discharge Summary Discharge Rx Participant: No New Discharge Prescriptions: New Omeprazole [PriLOSEC] 40 mg PO DAILY #30 cap Ondansetron Odt [Zofran Odt] 4 mg PO Q8HR PRN #9 tab PRN Reason: Nausea Acetaminophen Tab [Tylenol Tab] 1,000 mg PO Q6HR PRN #30 tablet PRN Reason: Pain bisacodyL [Dulcolax] 5 mg PO DAILY PRN #10 tab PRN Reason: Constipation Simethicone 40 mg/0.6 ml Drops [Mylicon Drops] 40 mg PO PCHS PRN #30 ml PRN Reason: Gas Discontinued Ibuprofen [Motrin] 600 mg PO Q8HR PRN #30 tab PRN Reason: Pain Discharge Medication List Acetaminophen Tab [Tylenol Tab] 1,000 mg PO Q6HR PRN #30 tablet 01/16/24 [Rx] Omeprazole [PriLOSEC] 40 mg PO DAILY #30 cap 01/16/24 [Rx] Ondansetron Odt [Zofran Odt] 4 mg PO Q8HR PRN #9 tab 01/16/24 [Rx] Simethicone 40 mg/0.6 ml Drops [Mylicon Drops] 40 mg PO PCHS PRN #30 ml 01/16/24 [Rx] bisacodyL [Dulcolax] 5 mg PO DAILY PRN #10 tab 01/16/24 [Rx] [facility] [facility] [place] [facility] [place] 01/18/24 10:30 am Patient Instructions/Handouts: Nutrition after Bariatric Surgery (GEN), Laparoscopic Sleeve Gastrectomy (GEN) Activity/Diet/Wound Care/Special Instructions: Liquid diet only for 2 weeks until January 26 No lifting over 4 pounds in 4 weeks, February 13December Shower. No soaking in bath tubs, until January 26 Please notify your surgeon if you develop nausea and vomiting including new onset of abdominal pain. Continue to use incentive spirometry to prevent pneumonias. Please continue to ambulate at home to prevent blood clots in legs. Follow-up at the bariatric center. May shower. Dressings to be discontinued by surgeon in the office. Drink 64 oz of fluid daily. Start protein shakes on . Notify bariatric center for temp over 101.0, increased pain, drainage from incisions. No straws or carbonated beverages. Liquid diet only. Sugar content should be less than 6 g to avoid dumping syndrome. Take MOM for constipation. CRUSH, OPEN, OR CUT TABLETS LARGER THAN A SIZE OF A TIC TAC Discharge/Stand Alone Forms: Area PCPs Discharge Disposition: HOME SELF-CARE
== END 2024-01-16 15:53 | disposition home or self-care (01) | DRG 621 ==
LOC: 2ORMAIN 09:34 → 4SSUR 17:10
PROVIDERS: ADMIT Surgery Plastic and Reconstructive Surgery; ATTEND Surgery Plastic and Reconstructive Surgery
PROC: 0DB64Z3 Excision of Stomach, Percutaneous Endoscopic Approach, Vertical (ICD-10-PCS; principal; 2024-01-14 10:45)
PROC: 0DJ08ZZ Inspection of Upper Intestinal Tract, Via Natural or Artificial Opening Endoscopic (ICD-10-PCS; principal; 2024-01-14 10:45)
PROC: 8E0W4CZ Robotic Assisted Procedure of Trunk Region, Percutaneous Endoscopic Approach (ICD-10-PCS; principal; 2024-01-14 10:45)
DX: E66.01 Morbid (severe) obesity due to excess calories (principal); I11.9 Hypertensive heart disease without heart failure; K76.0 Fatty (change of) liver, not elsewhere classified; K81.1 Chronic cholecystitis; J44.89 Other specified chronic obstructive pulmonary disease; R16.0 Hepatomegaly, not elsewhere classified; Z68.39 Body mass index [BMI] 39.0-39.9, adult; E11.9 Type 2 diabetes mellitus without complications; G47.33 Obstructive sleep apnea (adult) (pediatric); K21.9 Gastro-esophageal reflux disease without esophagitis; M17.0 Bilateral primary osteoarthritis of knee; M54.50 Low back pain, unspecified; F17.201 Nicotine dependence, unspecified, in remission; Z71.3 Dietary counseling and surveillance; Z86.32 Personal history of gestational diabetes
CPT/HCPCS: 74240; 80048; 80051; 81025; 82310; 82565; 83735; 84100; 84520; 85025; 88307; 94640; 94664; 94760

== ENCOUNTER → 2024-01-18 | Outpatient (CLI) | payer BC ==
[2024-01-18 10:04] VITALS: BP 123/76; PULSE 63; RESP 14; TEMP 97.8; BMI 39.1
== END | disposition home or self-care (01) ==
LOC: BARWHC3 09:01
PROVIDERS: ATTEND Surgery Plastic and Reconstructive Surgery
DX: E66.01 Morbid (severe) obesity due to excess calories (principal); F17.200 Nicotine dependence, unspecified, uncomplicated; K95.89 Other complications of other bariatric procedure; Z68.39 Body mass index [BMI] 39.0-39.9, adult
CPT/HCPCS: 99211

== ENCOUNTER → 2024-01-23 | Outpatient (CLI) | payer BC ==
[2024-01-23 09:51] VITALS: BP 127/86; PULSE 79; RESP 14; TEMP 98.5; BMI 36.6
== END | disposition home or self-care (01) ==
LOC: BARWHC3 08:49
PROVIDERS: ATTEND Surgery Plastic and Reconstructive Surgery
DX: E66.01 Morbid (severe) obesity due to excess calories (principal); F17.200 Nicotine dependence, unspecified, uncomplicated; Z71.3 Dietary counseling and surveillance; Z68.36 Body mass index [BMI] 36.0-36.9, adult
CPT/HCPCS: 97802; 99211

== ENCOUNTER → 2024-01-30 | Outpatient (CLI) | payer BC ==
[2024-01-30 13:31] VITALS: BP 117/85; PULSE 76; TEMP 98; BMI 35.7
--- NOTE | 2024-01-30 14:16 | P.BASOAP ---
Subjective Progress Note Date: 01/30/24 No heartburn. No infection. She is having bowel movements. FMLA reviewed. Highest 235 pounds. Goal is 140 pounds. Protein intake 60 grams daily. Fluids is 45 oz. Food journal. Calories is under 1000 kcal. Goal 500 to 1000 kcal. Steps 5000. Goal 60 to 80 grams of protein, carbs 50 g to 100 g. She is due for labs. FU February 12 Objective - Vital Signs Vital signs: Vital Signs Temp 98 F 01/30/24 13:29 Pulse 76 01/30/24 13:29 Resp BP 117/85 01/30/24 13:29 Pulse Ox FiO2 Intake & Output 01/29/24 01/30/24 01/30/24 18:59 06:59 18:59 Weight 91.626 kg Assessment/Plan Plan: Date: 01/30/24 Initial Weight: Initial BMI: Current Weight: 91.626 kg Current BMI: 35.7 Type of Surgery: Total Volume in Band: Previous Volume: Volume Removed: Volume Added: Band Size:
== END ==
LOC: BARWHC3 12:56
PROVIDERS: ATTEND Surgery Plastic and Reconstructive Surgery
DX: E66.01 Morbid (severe) obesity due to excess calories (principal); Z87.891 Personal history of nicotine dependence; Z68.35 Body mass index [BMI] 35.0-35.9, adult
CPT/HCPCS: 99211

== ENCOUNTER → 2024-06-25 | Outpatient (CLI) | payer BC ==
[2024-06-25 17:19] VITALS: BP 119/76; PULSE 82; RESP 16; TEMP 98; BMI 29.9
--- NOTE | 2024-06-25 18:06 | P.BASOAP ---
Subjective Progress Note Date: 06/25/24 She is at 900 kcal daily. She has lost weight. She tries to track. Protein 75 grams. Active for 90 minutes. Protein shake daily. Sugar free food. Lunch meat and cheese. Hard boiled eggs. Labs slip. Doing great. Objective - Vital Signs Vital signs: Vital Signs Temp 98.0 F 06/25/24 17:15 Pulse 82 06/25/24 17:15 Resp 16 06/25/24 17:15 BP 119/76 06/25/24 17:15 Pulse Ox FiO2 Intake & Output 06/24/24 06/25/24 06/25/24 18:59 06:59 18:59 Weight 76.657 kg Assessment/Plan Plan: Date: 06/25/24 Initial Weight: Initial BMI: Current Weight: 76.657 kg Current BMI: 29.9 Type of Surgery: Total Volume in Band: Previous Volume: Volume Removed: Volume Added: Band Size:
== END ==
LOC: BARWHC3 16:30
PROVIDERS: ATTEND Surgery Plastic and Reconstructive Surgery
DX: E66.01 Morbid (severe) obesity due to excess calories (principal); F17.210 Nicotine dependence, cigarettes, uncomplicated; Z68.29 Body mass index [BMI] 29.0-29.9, adult
CPT/HCPCS: 99211